=== PATIENT | female | born 1940 | race American Indian/Alaskan Native ===

== ENCOUNTER 2018-04-24 13:03 | Inpatient (IN) | payer MEDICARE ==
[2018-04-24] MEDS ORDERED: NACL 0.9% 1000 ML 1,000 ML IV ONE (13:42)
--- NOTE | 2018-04-24 13:47 | Emergency Department Report ---
ED Syncope HPI - General Chief Complaint: Syncope Stated Complaint: LOW HEART RATE Time Seen by Provider: 04/24/18 13:15 - History of Present Illness Initial Comments: 77-year-old female, history of dementia, presents to the ED from personal residential following syncopal episode while having bowel movement. Patient was initially unresponsive her caregiver. Upon EMS arrival patient was awake and alert, found to be bradycardic and hypotensive, with systolic BP in the 70s. Patient was just discharged from this hospital 3 days ago, following admission for syncope. Patient was worked up for CVA, however this workup was negative. Discharge summary shows that the patient's syncopal episode at that time was thought to be due to symptomatic bradycardia from her metoprolol. Upon discharge, metoprolol was decreased from 25 mg to 12.5 mg. - Related Data Allergies/Adverse Reactions: Allergies valsartan Allergy (Verified 04/19/18 14:23) Angioedema Home Medications: Ambulatory Orders Bisacodyl [Dulcolax tab] 10 mg PO DAILY 04/19/18 Citalopram [Celexa] 20 mg PO QDAY 04/19/18 Donepezil HCl 23 mg PO DAILY 04/19/18 Furosemide [Lasix TAB] 20 mg PO PRN 04/19/18 Levothyroxine [Synthroid] 88 mcg PO QAM 04/19/18 QUEtiapine [SEROquel] 25 mg PO BID 04/19/18 hydrALAZINE [Apresoline TAB] 25 mg PO BID 04/19/18 Aspirin [Aspirin TAB] 325 mg PO QDAY #30 tablet 04/21/18 Metoprolol Xl [Metoprolol SUCCINATE ER TAB] 12.5 mg PO QDAY #30 tablet 04/21/18 ED Review of Systems ROS: Stated complaint: LOW HEART RATE Other details as noted in HPI ED Past Medical Hx - Past Medical History Previous Medical History?: Yes Hx Hypertension: Yes Hx Congestive Heart Failure: No Hx Diabetes: No Hx Arthritis: Yes Hx Psychiatric Treatment: Yes (anxiety) Hx Asthma: No Hx COPD: No Hx Dementia: Yes Additional medical history: Hypothyroid - Surgical History Past Surgical History?: Yes Hx Cholecystectomy: Yes Additional Surgical History: back and hysterectomy - Social History Smoking Status: Never Smoker Substance Use Type: None - Medications Home Medications: Home Medications Medication Instructions Recorded Confirmed Last Taken Type Bisacodyl [Dulcolax tab] 10 mg PO DAILY 04/19/18 04/24/18 Unknown History Citalopram [Celexa] 20 mg PO QDAY 04/19/18 04/24/18 Unknown History Donepezil HCl 23 mg PO DAILY 04/19/18 04/24/18 Unknown History Furosemide [Lasix TAB] 20 mg PO PRN 04/19/18 04/24/18 Unknown History Levothyroxine [Synthroid] 88 mcg PO QAM 04/19/18 04/24/18 Unknown History QUEtiapine [SEROquel] 25 mg PO BID 04/19/18 04/24/18 Unknown History hydrALAZINE [Apresoline TAB] 25 mg PO BID 04/19/18 04/24/18 Unknown History Aspirin [Aspirin TAB] 325 mg PO QDAY #30 tablet 04/21/18 04/24/18 Unknown Rx Metoprolol Xl [Metoprolol 12.5 mg PO QDAY #30 tablet 04/21/18 04/24/18 Unknown Rx SUCCINATE ER TAB] ED Physical Exam - General Limitations: Altered Mental Status ED Course Vital Signs 04/24/18 04/24/18 04/24/18 13:05 13:57 14:10 Temperature 97.4 F L Pulse Rate 39 L 45 L Respiratory 10 L 16 Rate Blood Pressure 115/74 Blood Pressure 154/64 [Right] O2 Sat by Pulse 95 98 Oximetry - Consultations Consultation #1: 04/24/18 14:[address] Denise. Recommends taking pt off all beta blockers. Also state will get an EP evaluation. ED Medical Decision Making - Lab Data Result diagrams: 04/24/18 13:45 04/24/18 13:45 - EKG Data -: EKG Interpreted by Al EKG shows normal: sinus rhythm, axis, intervals, QRS complexes, ST-T waves Rate: bradycardia - EKG Data When compared to previous EKG there are: changes noted (now more bradycardic) - Radiology Data Radiology results: report reviewed, image reviewed - Medical Decision Making 77-year-old female with bradycardia status post syncopal episode. Labs normal, EKG shows heart rate of 40 with sinus rhythm. No evidence of ischemia. Troponin normal. Since blood pressure normal decision was made to hold atropine. Patient seen and evaluated by operating room aide, Dr. Denise. Patient to be taken off of her beta blockers and will obtain EP consult. Spoke to Dr Floyd spoke to hospitalist Dr. Floyd regarding patient. Agrees to admit patient, hospitalist. Will admit pt. - Differential Diagnosis medication effect, ACS, sick sinus Critical care attestation.: If time is entered above; I have spent that time in minutes in the direct care of this critically ill patient, excluding procedure time. ED Disposition Clinical Impression: Symptomatic bradycardia Syncope Qualifiers: Encounter type: initial encounter Disposition: OP ADMIT IP TO THIS HOSP Is pt being admited?: Yes Condition: Stable Time of Disposition: 14:41
[2018-04-24 13:53] LABS: Basophils # (Auto) 0.1 K/mm3 (0.0-0.1); Basophils % (Auto) 1.3 % (0.0-1.8); Eosinophils # (Auto) 0.2 K/mm3 (0.0-0.4); Eosinophils % (Auto) 3.2 % (0.0-4.3); Hematocrit 34.9 % (30.3-42.9); Lymphocytes # (Auto) 1.7 K/mm3 (1.2-5.4); Lymphocytes % (Auto) 22.7 % (13.4-35.0); Mean Corpuscular HGB Conc 35 % (30-34); Mean Corpuscular Hemoglobin 35 pg (28-32); Mean Corpuscular Volume 102 fl (79-97); Monocytes # (Auto) 0.8 K/mm3 (0.0-0.8); Monocytes % (Auto) 11.3 % (0.0-7.3); Platelet Count 240 K/mm3 (140-440); Red Blood Count 3.44 M/mm3 (3.65-5.03); Red Cell Distribution Width 13.4 % (13.2-15.2)
[2018-04-24 14:17] LABS: BUN/Creatinine Ratio 14; Blood Urea Nitrogen 15 mg/dL (7-17); Calcium 9.1 mg/dL (8.4-10.2); Hemolysis Index 16
--- NOTE | 2018-04-24 14:39 | History and Physical Report ---
History of Present Illness Chief complaint: keeps passing out History of present illness: 77 YO Female Personal [facility] Resident with HTN, Dementia, Hypothyroidism, Encephalopathy, Anxiety presents to ED for evaluation. Pt is confused and unable to provide history. Pt history taken from her caregiver. As per caregiver , the patient was in the restroom and having a bowel movement whe she suddenly lost consciousness, and fell onto the floor. Pt was found to be unresponsive. EMS was notified, and upon arrival the patient was found to be hypotensive and bradycardic. The patient was transported to [facility] for further care and evaluation. Pt seen and evaluated in ED and found to have symptomatic bradycardia, as well as Encephalopathy. Pt admitted to telemetry. Cardiology consulted in ED. Past History Past Medical History: arthritis, hypertension, hypothyroidism, other (Dementia, Anxiety) Past Surgical History: cholecystectomy, hysterectomy, Other (back surgery) Social history: single. denies: smoking, alcohol abuse, prescription drug abuse Family history: hypertension Medications and Allergies Allergies Allergy/AdvReac Type Severity Reaction Status Date / Time valsartan Allergy Angioedema Verified 04/19/18 14:23 Home Medications Medication Instructions Recorded Confirmed Last Taken Type Bisacodyl [Dulcolax tab] 10 mg PO DAILY 04/19/18 04/24/18 Unknown History Citalopram [Celexa] 20 mg PO QDAY 04/19/18 04/24/18 Unknown History Donepezil HCl 23 mg PO DAILY 04/19/18 04/24/18 Unknown History Furosemide [Lasix TAB] 20 mg PO PRN 04/19/18 04/24/18 Unknown History Levothyroxine [Synthroid] 88 mcg PO QAM 04/19/18 04/24/18 Unknown History QUEtiapine [SEROquel] 25 mg PO BID 04/19/18 04/24/18 Unknown History hydrALAZINE [Apresoline TAB] 25 mg PO BID 04/19/18 04/24/18 Unknown History Aspirin [Aspirin TAB] 325 mg PO QDAY #30 tablet 04/21/18 04/24/18 Unknown Rx Metoprolol Xl [Metoprolol 12.5 mg PO QDAY #30 tablet 04/21/18 04/24/18 Unknown Rx SUCCINATE ER TAB] Active Meds: Active Medications Sodium Chloride (Nacl 0.9% 1000 Ml) 1,000 mls @ 999 mls/hr IV BOLUS ONE Stop: 04/24/18 14:42 Last Admin: 04/24/18 13:57 Dose: 999 mls/hr Review of Systems ROS unobtainable: due to mental status Exam - Constitutional Vitals: Temp Pulse Resp BP Pulse Ox 97.4 F L 39 L 10 L 115/74 95 04/24/18 13:57 04/24/18 13:05 04/24/18 13:05 04/24/18 13:05 04/24/18 13:05 General appearance: Present: mild distress - EENT Eyes: Present: PERRL ENT: hearing intact, clear oral mucosa - Neck Neck: Present: supple, normal ROM - Respiratory Respiratory effort: normal Respiratory: bilateral: CTA - Cardiovascular Rhythm: other (bradycardic) Heart Sounds: Present: S1 & S2. Absent: rub, click - Extremities Extremities: pulses symmetrical, No edema Peripheral Pulses: abnormal (1+.= bilaterally) - Abdominal General gastrointestinal: Present: soft, non-tender, non-distended, normal bowel sounds Female genitourinary: Present: normal - Integumentary Integumentary: Present: clear, warm, dry - Musculoskeletal Musculoskeletal: generalized weakness - Psychiatric Psychiatric: no appropriate mood/affect, no intact judgment & insight, no memory intact - Neurologic Neurologic: CNII-XII intact, moves all extremities, no gait normal Results - Labs CBC & Chem 7: 04/24/18 13:45 04/24/18 13:45 Labs: Abnormal lab results 04/24/18 Range/Units 13:45 RBC 3.44 L (3.65-5.03) M/mm3 MCV 102 H (79-97) fl MCH 35 H (28-32) pg MCHC 35 H (30-34) % [place] % (Auto) 11.3 H (0.0-7.3) % Assessment and Plan - Patient Problems (1) Diastolic CHF Current Visit: Yes Status: Acute Qualifiers: Heart failure chronicity: acute on chronic Qualified Code(s): I50.33 - Acute on chronic diastolic (congestive) heart failure Plan to address problem: Admit to telemetry, Strict I/O, monitor uop q shift,daily weight, cardiology consulted in ED. (2) Symptomatic bradycardia Current Visit: Yes Status: Acute Plan to address problem: neuro checks, admit to telemetry, cardiology consulted in ED, hold b lucía therapy. (3) Syncope Current Visit: Yes Status: Acute Qualifiers: Encounter type: initial encounter Plan to address problem: secondary to bradycardia, hold B lucía therapy, (4) Encephalopathy Current Visit: No Status: Acute Plan to address problem: Neuro checks, seizure precautions, supportive care. (5) DVT prophylaxis Current Visit: No Status: Acute Plan to address problem: SCD to BLE while in bed.
[2018-04-24] MEDS ORDERED: PROVENTIL IH PRN (14:41)
[2018-04-24] MEDS ORDERED: ZOFRAN IV PRN (14:41)
[2018-04-24] MEDS ORDERED: TYLENOL PO PRN (14:41)
[2018-04-24] MEDS ORDERED: SODIUM CHLORIDE FLUSH SYRINGE 10 ML IV PRN (14:41)
--- NOTE | 2018-04-24 14:53 | XRay Report ---
AP CHEST: HISTORY: Syncope Borderline heart size and small left pleural effusion are suspected. The lungs are generally clear otherwise. No evidence for pneumonia or large mass. The bony structures are intact. IMPRESSION: Borderline heart size. Small left pleural effusion.
[2018-04-24] MEDS ORDERED: APRESOLINE IV PRN (17:40)
--- NOTE | 2018-04-24 17:47 | Consultation ---
History of Present Illness Consult date: 04/24/18 Consult reason: syncope History of present illness: 77y F with advanced dementia, admitted following a syncope. She lives in a personal assisted. This is a second admission for syncope, was at this hospital just last week, . At that time she had extensive neuro workup with Brain MRI and neurology consultation. Cardiology was not involved in her care during that admission, but an Echo ordered by the medical service reported normal EF 60-65%, no cardioembolic source. On this presentation, she was reported to have syncope while on the commode. Patient unable to give a history due to her dementia. Most notably, her current syncope is associated with a persistent sinus bradycardia, HR was 39 on ER arrival. I reviewed her records from last week. HR was 50s-60s on presentation, but dipped down to the high 40s and low 50s, which led to recommendation for halving her metoprolol XL to 25mg half tablet daily on discharge. Currently she is awake, alert, no acute distress, remains with marked bradycardia on telemonitor. BP is elevated 160 systolic. ECG is marked sinus bradycardia at 40, otherwise normal. TSH measurements last week and again today are both normal. Past History Past Medical History: hypertension, hypothyroidism, other (dementia, syncope) Medications and Allergies Allergies Allergy/AdvReac Type Severity Reaction Status Date / Time valsartan Allergy Angioedema Verified 04/19/18 14:23 Home Medications Medication Instructions Recorded Confirmed Last Taken Type Bisacodyl [Dulcolax tab] 10 mg PO DAILY 04/19/18 04/24/18 Unknown History Citalopram [Celexa] 20 mg PO QDAY 04/19/18 04/24/18 Unknown History Donepezil HCl 23 mg PO DAILY 04/19/18 04/24/18 Unknown History Furosemide [Lasix TAB] 20 mg PO PRN 04/19/18 04/24/18 Unknown History Levothyroxine [Synthroid] 88 mcg PO QAM 04/19/18 04/24/18 Unknown History QUEtiapine [SEROquel] 25 mg PO BID 04/19/18 04/24/18 Unknown History hydrALAZINE [Apresoline TAB] 25 mg PO BID 04/19/18 04/24/18 Unknown History Aspirin [Aspirin TAB] 325 mg PO QDAY #30 tablet 04/21/18 04/24/18 Unknown Rx Metoprolol Xl [Metoprolol 12.5 mg PO QDAY #30 tablet 04/21/18 04/24/18 Unknown Rx SUCCINATE ER TAB] Active Meds: Active Medications Acetaminophen (Tylenol) 650 mg PO Q4H PRN PRN Reason: Pain MILD(1-3)/Fever >100.5/JO Albuterol (Proventil) 2.5 mg IH Q4HRT PRN PRN Reason: Shortness Of Breath Aspirin (Aspirin) 325 mg PO QDAY [facility]ITA Bisacodyl (Dulcolax) 10 mg PO DAILY PITA Citalopram Hydrobromide (Celexa) 20 mg PO QDAY PITA Levothyroxine Sodium (Synthroid) 88 mcg PO QAM PITA Miscellaneous Medication (Donepezil Hcl [Donepezil Hcl]) 23 mg PO DAILY PITA Ondansetron HCl (Zofran) 4 mg IV Q8H PRN PRN Reason: Nausea And Vomiting Quetiapine Fumarate (Seroquel) 25 mg PO BID PITA Sodium Chloride (Sodium Chloride Flush Syringe 10 Ml) 10 ml IV BID PITA Sodium Chloride (Sodium Chloride Flush Syringe 10 Ml) 10 ml IV PRN PRN PRN Reason: LINE FLUSH Review of Systems ROS unobtainable: due to mental status Physical Examination Vital Signs Pulse Resp BP Pulse Ox 39 L 10 L 115/74 95 04/24/18 13:05 04/24/18 13:05 04/24/18 13:05 04/24/18 13:05 General appearance: no acute distress HEENT: Positive: PERRL Neck: Positive: neck supple Cardiac: Positive: Regular Rhythm Lungs: Positive: clear to auscultation Neuro: Positive: Grossly Intact Abdomen: Positive: Soft Female genitourinary: deferred Skin: Positive: Clear Extremities: Absent: edema Results 04/24/18 13:45 04/24/18 13:45 CBC 04/24/18 Range/Units 13:45 WBC 7.3 (4.5-11.0) K/mm3 RBC 3.44 L (3.65-5.03) M/mm3 Hgb 12.0 (10.1-14.3) gm/dl Hct 34.9 (30.3-42.9) % Plt Count 240 (140-440) K/mm3 Lymph # 1.7 (1.2-5.4) K/mm3 [place] # 0.8 (0.0-0.8) K/mm3 Eos # 0.2 (0.0-0.4) K/mm3 Baso # 0.1 (0.0-0.1) K/mm3 Comprehensive Metabolic Panel 04/24/18 Range/Units 13:45 Sodium 137 (137-145) mmol/L Potassium 3.9 (3.6-5.0) mmol/L Chloride 101.2 (98-107) mmol/L Carbon Dioxide 24 (22-30) mmol/L BUN 15 (7-17) mg/dL Creatinine 1.1 (0.7-1.2) mg/dL Glucose 87 (65-100) mg/dL Calcium 9.1 (8.4-10.2) mg/dL EKG interpretations - Telemetry EKG Rhythm: Sinus Bradycardia Assessment and Plan Syncope (recurrent) and marked sinus bradycardia. TSH is normal, ECG no ischemic changes. Echocardiogram EF normal 60%. Patient needs evaluation for PM implant.
[2018-04-24] MEDS: PROCARDIA XL PO SCH (18:50)
[2018-04-25] MEDS: SODIUM CHLORIDE FLUSH SYRINGE 10 ML IV SCH ×3 (00:18→21:41)
[2018-04-25] MEDS: ASPIRIN PO SCH (09:47)
[2018-04-25] MEDS: celeXA PO SCH (09:47)
[2018-04-25] MEDS: PROCARDIA XL PO SCH (09:47)
[2018-04-25] MEDS: SYNTHROID PO SCH (09:47)
[2018-04-25] MEDS: DULCOLAX PO SCH (09:48)
[2018-04-25] MEDS ORDERED: DONEPEZIL HCL 23 MG PO SCH (10:00)
[2018-04-25] MEDS ORDERED: AFLURIA QUAD 2018-2019 SYRINGE IM ONE (12:00)
--- NOTE | 2018-04-25 13:05 | Consultation ---
History of Present Illness Consult date: 04/25/18 Consult reason: syncope History of present illness: Patient has advanced dementia and not able to provide any meaningful history. History was obtained from medical records. She is a [facility] resident and apparently had an episode of syncope while attempting to move her bowels. She was subsequently noted to have significant sinus bradycardia. She has been chronically treated with beta lucía due to h/o htn and dose was recently decreased after similar episode of syncope and bradycardia. Beta lucía has now been held since admission. She has h/o hypothyroidism but is currently euthyroid on medical therapy. Recent echocardiogram revealed normal LV systolic function and no significant valvular lesions. ECG on presentation revealed sinus bradycardia at 40 bpm and was otherwise unremarkable. Telemetry monitoring today reveals improved bradycardia with heart rates ranging from the mid 40s to mid 50s. Past History Past Medical History: hypertension, hypothyroidism, other (dementia, syncope) Past Surgical History: cholecystectomy, hysterectomy, Other (back surgery) Social history: single. denies: smoking, alcohol abuse, prescription drug abuse Family history: hypertension Medications and Allergies Allergies Allergy/AdvReac Type Severity Reaction Status Date / Time valsartan Allergy Angioedema Verified 04/19/18 14:23 Home Medications Medication Instructions Recorded Confirmed Last Taken Type Bisacodyl [Dulcolax tab] 10 mg PO DAILY 04/19/18 04/24/18 Unknown History Citalopram [Celexa] 20 mg PO QDAY 04/19/18 04/24/18 Unknown History Donepezil HCl 23 mg PO DAILY 04/19/18 04/24/18 Unknown History Furosemide [Lasix TAB] 20 mg PO PRN 04/19/18 04/24/18 Unknown History Levothyroxine [Synthroid] 88 mcg PO QAM 04/19/18 04/24/18 Unknown History QUEtiapine [SEROquel] 25 mg PO BID 04/19/18 04/24/18 Unknown History hydrALAZINE [Apresoline TAB] 25 mg PO BID 04/19/18 04/24/18 Unknown History Aspirin [Aspirin TAB] 325 mg PO QDAY #30 tablet 04/21/18 04/24/18 Unknown Rx Metoprolol Xl [Metoprolol 12.5 mg PO QDAY #30 tablet 04/21/18 04/24/18 Unknown Rx SUCCINATE ER TAB] Active Meds: Active Medications Acetaminophen (Tylenol) 650 mg PO Q4H PRN PRN Reason: Pain MILD(1-3)/Fever >100.5/JO Albuterol (Proventil) 2.5 mg IH Q4HRT PRN PRN Reason: Shortness Of Breath Aspirin (Aspirin) 325 mg PO QDAY [facility] Last Admin: 04/25/18 09:47 Dose: 325 mg Bisacodyl (Dulcolax) 10 mg PO DAILY [facility] Last Admin: 04/25/18 09:48 Dose: 10 mg Citalopram Hydrobromide (Celexa) 20 mg PO QDAY [facility] Last Admin: 04/25/18 09:47 Dose: 20 mg Hydralazine HCl (Apresoline) 20 mg IV Q6HR PRN PRN Reason: HTN SYS>145 Levothyroxine Sodium (Synthroid) 88 mcg PO QAM [facility] Last Admin: 04/25/18 09:47 Dose: 88 mcg Miscellaneous Medication (Donepezil Hcl [Donepezil Hcl]) 23 mg PO DAILY [facility] Nifedipine (Procardia Xl) 60 mg PO QDAY [facility] Last Admin: 04/25/18 09:47 Dose: 60 mg Ondansetron HCl (Zofran) 4 mg IV Q8H PRN PRN Reason: Nausea And Vomiting Quetiapine Fumarate (Seroquel) 25 mg PO BID [facility] Last Admin: 04/25/18 09:47 Dose: 25 mg Sodium Chloride (Sodium Chloride Flush Syringe 10 Ml) 10 ml IV BID [facility] Last Admin: 04/25/18 10:00 Dose: 10 ml Sodium Chloride (Sodium Chloride Flush Syringe 10 Ml) 10 ml IV PRN PRN PRN Reason: LINE FLUSH Review of Systems ROS unobtainable: due to mental status Physical Examination Vital Signs Pulse Resp BP Pulse Ox 39 L 10 L 115/74 95 04/24/18 13:05 04/24/18 13:05 04/24/18 13:05 04/24/18 13:05 General appearance: no acute distress HEENT: Positive: EOMI Neck: Positive: trachea midline Cardiac: Positive: Reg Rate and Rhythm. Negative: Audible Murmur Lungs: Positive: clear to auscultation Neuro: Positive: Other (Not oriented to place, person, or time) Abdomen: Positive: Soft, Active Bowel Sounds Extremities: Absent: edema Results 04/24/18 13:45 10/22/18 13:45 CBC 04/24/18 Range/Units 13:45 WBC 7.3 (4.5-11.0) K/mm3 RBC 3.44 L (3.65-5.03) M/mm3 Hgb 12.0 (10.1-14.3) gm/dl Hct 34.9 (30.3-42.9) % Plt Count 240 (140-440) K/mm3 Lymph # 1.7 (1.2-5.4) K/mm3 [place] # 0.8 (0.0-0.8) K/mm3 Eos # 0.2 (0.0-0.4) K/mm3 Baso # 0.1 (0.0-0.1) K/mm3 Comprehensive Metabolic Panel 04/24/18 Range/Units 13:45 Sodium 137 (137-145) mmol/L Potassium 3.9 (3.6-5.0) mmol/L Chloride 101.2 (98-107) mmol/L Carbon Dioxide 24 (22-30) mmol/L BUN 15 (7-17) mg/dL Creatinine 1.1 (0.7-1.2) mg/dL Glucose 87 (65-100) mg/dL Calcium 9.1 (8.4-10.2) mg/dL Assessment and Plan Syncope per medical records Advanced dementia: Patient not able to provide history. Sinus bradycardia on beta lucía Htn Hypothyroidism: Currently euthyroid on medical treatment. Recommend: Continue to hold beta lucía and do not start any other negative chronotropic drugs. Continue to monitor - no indication for PPM unless she has obvious symptoms related to bradycardia, severe bradycardia (HR below 40 while awake) or significant sinus pauses.
--- NOTE | 2018-04-25 15:24 | Progress Note ---
Assessment and Plan Assessment and plan: 77 YO Female Personal [facility] Resident with HTN, Dementia, Hypothyroidism, Encephalopathy, Anxiety presents to ED for evaluation. Pt is confused and unable to provide history. Pt history taken from her caregiver. As per caregiver , the patient was in the restroom and having a bowel movement when she suddenly lost consciousness, and fell onto the floor. Pt was found to be unresponsive. EMS was notified, and upon arrival the patient was found to be hypotensive and bradycardic. The patient was transported to [facility] for further care and evaluation. Pt seen and evaluated in ED and found to have symptomatic bradycardia, as well as Encephalopathy. Symptomatic bradycardia - Patient was on Toprol and currently discontinued - Didn't have any symptoms after admission - Cardiology is following - On telemetry monitoring, her heart rate was in the 50's Hypertension - Started on Procardia Dementia -Supportive care DVT prophylaxis - On lovenox Disposition - We will be discharged back to SNF once cardiology cleared for discharge. History Interval history: Patient was seen and evaluated this morning, patient is demented and not able to communicate. Hospitalist Physical - Physical exam Narrative exam: Not in cardiopulmonary distress. The patient appeared well nourished and normally developed. Vital signs as documented. Head exam is unremarkable. No scleral icterus . Neck is without jugular venous distension, thyromegaly, or carotid bruits. Lungs are clear to auscultation. Cardiac exam reveals regular rate and Rhythm. Abdominal exam reveals normal bowel sounds. Extremities are nonedematous. 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 - Constitutional Vitals: Temp Pulse Resp BP Pulse Ox 98.6 F 51 L 20 148/64 99 04/25/18 08:02 04/25/18 08:02 04/25/18 08:02 04/25/18 08:02 04/25/18 08:39 General appearance: Present: no acute distress Results - Labs CBC & Chem 7: 04/24/18 13:45 04/24/18 13:45 Labs: Laboratory Last Values WBC 7.3 K/mm3 (4.5-11.0) 04/24/18 13:45 RBC 3.44 M/mm3 (3.65-5.03) L 04/24/18 13:45 Hgb 12.0 gm/dl (10.1-14.3) 04/24/18 13:45 Hct 34.9 % (30.3-42.9) 04/24/18 13:45 MCV 102 fl (79-97) H 04/24/18 13:45 MCH 35 pg (28-32) H 04/24/18 13:45 MCHC 35 % (30-34) H 04/24/18 13:45 RDW 13.4 % (13.2-15.2) 04/24/18 13:45 Plt Count 240 K/mm3 (140-440) 04/24/18 13:45 Lymph % (Auto) 22.7 % (13.4-35.0) 04/24/18 13:45 [place] % (Auto) 11.3 % (0.0-7.3) H 04/24/18 13:45 Eos % (Auto) 3.2 % (0.0-4.3) 04/24/18 13:45 Baso % (Auto) 1.3 % (0.0-1.8) 04/24/18 13:45 Lymph # 1.7 K/mm3 (1.2-5.4) 04/24/18 13:45 [place] # 0.8 K/mm3 (0.0-0.8) 04/24/18 13:45 Eos # 0.2 K/mm3 (0.0-0.4) 04/24/18 13:45 Baso # 0.1 K/mm3 (0.0-0.1) 04/24/18 13:45 Seg Neutrophils % 61.5 % (40.0-70.0) 04/24/18 13:45 Seg Neutrophils # 4.5 K/mm3 (1.8-7.7) 04/24/18 13:45 Sodium 137 mmol/L (137-145) 04/24/18 13:45 Potassium 3.9 mmol/L (3.6-5.0) 04/24/18 13:45 Chloride 101.2 mmol/L (98-107) 04/24/18 13:45 Carbon Dioxide 24 mmol/L (22-30) 04/24/18 13:45 Anion Gap 16 mmol/L 04/24/18 13:45 BUN 15 mg/dL (7-17) 04/24/18 13:45 Creatinine 1.1 mg/dL (0.7-1.2) 04/24/18 13:45 Estimated GFR 59 ml/min 04/24/18 13:45 BUN/Creatinine Ratio 14 % 04/24/18 13:45 Glucose 87 mg/dL (65-100) 04/24/18 13:45 POC Glucose 124 (70-105) H 04/24/18 21:31 Calcium 9.1 mg/dL (8.4-10.2) 04/24/18 13:45 Magnesium 1.90 mg/dL (1.7-2.3) 04/24/18 16:03 Troponin T < 0.010 ng/mL (0.00-0.029) 04/24/18 13:45 TSH 1.760 mlU/mL (0.270-4.200) 04/24/18 16:03
[2018-04-25] MEDS ORDERED: LOVENOX SUB-Q SCH (22:00)
[2018-04-26] MEDS: ASPIRIN PO SCH (10:56)
[2018-04-26] MEDS: DULCOLAX PO SCH (10:56)
[2018-04-26] MEDS: PROCARDIA XL PO SCH (10:57)
[2018-04-26] MEDS: celeXA PO SCH (10:57)
[2018-04-26] MEDS: SYNTHROID PO SCH (10:57)
[2018-04-26] MEDS: SODIUM CHLORIDE FLUSH SYRINGE 10 ML IV SCH (10:58)
--- NOTE | 2018-04-26 11:48 | Progress Note ---
Assessment and Plan Syncope normal EF 60-65%, no cardioembolic source by recent echocardiogram Advanced dementia Sinus bradycardia beta lucía discontinued. no indication for PPM Htn Hypothyroidism: Currently euthyroid on medical treatment. Recommend: Avoid negative chronotropic drugs. Otherwise, conservative cardiac management. Subjective Date of service: 04/26/18 Interval history: Patient is alert with confusion. No distress noted. Sinus rhythm, rate 61 on telemetry. Objective Vital Signs Temp Pulse Resp BP BP Pulse Ox 04/26/18 09:09 100 04/26/18 08:21 98.4 F 62 20 120/60 98 04/26/18 04:34 98.1 F 18 128/61 04/25/18 23:48 97.8 F 61 18 107/46 98 04/25/18 20:22 59 L 04/25/18 20:08 20 04/25/18 19:22 98.2 F 18 122/55 04/25/18 16:13 97.9 F 59 L 20 132/51 99 04/25/18 11:56 97.9 F 20 135/70 - Physical Examination General: No Apparent Distress Neck: Positive: trachea midline Cardiac: Positive: Reg Rate and Rhythm Lungs: Positive: Decreased Breath Sounds Neuro: Positive: Weakness Extremities: Absent: edema
[2018-04-26 12:32] VITALS: BP 131/67
--- NOTE | 2018-04-26 14:50 | Discharge Summary ---
Providers - Providers Date of Admission: 04/24/18 14:41 Attending physician: PERCY LAYTON MD 04/24/18 13:51 Consult to Physician [CONS] Stat Comment: Consulting Provider: DOMI GUTIERREZ Physician Instructions: Reason For Exam: bradycardia Primary care physician: [employer]ICER Hospitalization Reason for admission: syncope, bradycardia, dementia Condition: Stable Hospital course: Admission H/P 77 YO Female Personal Fdc Resident with HTN, Dementia, Hypothyroidism, Encephalopathy, Anxiety presents to ED for evaluation. Pt is confused and unable to provide history. Pt history taken from her caregiver. As per caregiver , the patient was in the restroom and having a bowel movement whe she suddenly lost consciousness, and fell onto the floor. Pt was found to be unresponsive. EMS was notified, and upon arrival the patient was found to be hypotensive and bradycardic. The patient was transported to [facility] for further care and evaluation. Pt seen and evaluated in ED and found to have symptomatic bradycardia, as well as Encephalopathy. Pt admitted to telemetry. Cardiology consulted in ED. Patient was admitted to the floor for symptomatic bradycardia with syncope and cardiology evaluated her D/C her metoprolol followed and her HR was in the mid 50's no symptoms and discharged back to SNF. patient was given procardia for HTN and discontinued Toprol. patient was hemodynamically stable at the time of discharge. Appropriate medication scripts were given. Disposition: DC/TX-03 SNF [facility] Time spent for discharge: 35 minutes - Discharge Diagnoses (1) Symptomatic bradycardia Status: Acute (2) Syncope Status: Acute Qualifiers: Encounter type: initial encounter (3) Dementia Status: Acute Qualifiers: Alzheimer's disease onset: other onset Dementia behavioral disturbance: with behavioral disturbance (4) HTN (hypertension) Status: Acute Qualifiers: Hypertension type: essential hypertension Qualified Code(s): I10 - Essential (primary) hypertension (5) Hypothyroid Status: Acute Qualifiers: Hypothyroidism type: unspecified Qualified Code(s): E03.9 - Hypothyroidism , unspecified Core Measure Documentation - Palliative Care Palliative Care/ Comfort Measures: Not Applicable - Core Measures Any of the following diagnoses?: none Exam - Physical Exam Narrative exam: Not in cardiopulmonary distress. The patient appeared well nourished and normally developed. Vital signs as documented. Head exam is unremarkable. No scleral icterus . Neck is without jugular venous distension, thyromegaly, or carotid bruits. Lungs are clear to auscultation. Cardiac exam reveals regular rate and Rhythm. Abdominal exam reveals normal bowel sounds. Extremities are nonedematous. COMMUNITY ASSISTANT: Demented. - Constitutional Vitals: Temp Pulse Resp BP Pulse Ox 98.0 F 56 L 18 131/67 99 04/26/18 12:31 04/26/18 12:31 04/26/18 12:31 04/26/18 12:31 04/26/18 12:31 Plan Activity: advance as tolerated Weight Bearing Status: Weight Bear as Tolerated Diet: low salt Additional Instructions: Follow up at [facility] if no estbliahed PCP. Follow up with: PRIMARY CARE, [Primary Care Provider] - 3-5 Days Forms: Accompanied Note Prescriptions: NIFEdipine XL [Procardia Xl] 60 mg PO QDAY #30 tablet
== END 2018-04-26 18:05 | DRG 308 ==
LOC: ED 13:03 → 4A 14:41
PROVIDERS: ADMIT Internal Medicine; ATTEND Internal Medicine
DX: R00.1 Bradycardia, unspecified (principal); I50.33 Acute on chronic diastolic (congestive) heart failure; G93.40 Encephalopathy, unspecified; I11.0 Hypertensive heart disease with heart failure; R55 Syncope and collapse; F03.90 Unspecified dementia, unspecified severity, without behavioral disturbance, psychotic disturbance, mood disturbance, and anxiety; E03.9 Hypothyroidism, unspecified; F41.9 Anxiety disorder, unspecified; M19.90 Unspecified osteoarthritis, unspecified site; Z90.49 Acquired absence of other specified parts of digestive tract; Z90.710 Acquired absence of both cervix and uterus; Z82.49 Family history of ischemic heart disease and other diseases of the circulatory system; Z79.899 Other long term (current) drug therapy; Z79.82 Long term (current) use of aspirin
CPT/HCPCS: 36415; 71045; 80048; 82962; 83735; 84443; 84484; 85025; 90686; 93005; 93010; 96360; J0360; J1650; J7030

== ENCOUNTER 2020-05-02 14:48 | Inpatient (IN) | payer MEDICARE ==
--- NOTE | 2020-05-02 15:07 | Consultation ---
History of Present Illness - Reason for Consult Consult date: 05/02/20 - History of Present Illness [facility] Date of Service: 05/02/2020 14:42:28 Impression: Rule Out Acute Ischemic Stroke ams Comments/Sign-Out: She may have stat CT angiogram of the head and neck and CT perfusion studies to rule out a large vessel occlusion. If these tests are negative then,The patient needs to be admitted for further testing with brain MRI, carotids and echocardiogram. Mechanism of Stroke: Not Clear Metrics: Last Known Well: 05/02/2020 13:50:00 [employer] Notification Time: 05/02/2020 14:41:05 Arrival Time: 05/02/2020 14:47:56 Stamp Time: 05/02/2020 14:42:28 Time First Login Attempt: 05/02/2020 14:46:27 Video Start Time: 05/02/2020 14:46:27 Symptoms: ams NIHSS Start Assessment Time: 05/02/2020 14:49:00 Patient is not a candidate for Alteplase/Activase. Patient was not deemed candidate for Alteplase/Activase thrombolytics because of Patient is obtunded, cannot find focal deficits. Video End Time: 05/02/2020 15:05:20 CT head showed no acute hemorrhage or acute core infarct. Lower Likelihood of Large Vessel Occlusion but Following Stat Studies are Recommended CTA Head and Neck. ED Physician notified of diagnostic impression and management plan on 05/02/2020 15:05:22 Our recommendations are outlined below. Recommendations: Activate Stroke Protocol Admission/Order Set Stroke/Telemetry Floor Neuro Checks Bedside Swallow Eval DVT Prophylaxis IV Fluids, Normal Saline Head of Bed 30 Degrees Euglycemia and Avoid Hyperthermia (PRN Acetaminophen) Antiplatelet Therapy Recommended Routine Consultation with Inhouse Neurology for Follow up Care Sign Out: Discussed with Emergency Department Provider History of Present Illness: Patient is a 79 year old Female. Patient was brought by EMS for symptoms of ams 79-year-old female with past medical history significant for TIA, hypothyroidism and dementia not on any antiplatelets or anticoagulants. She was last known normal about an hour prior representation when she became unresponsive. She usually becomes unresponsive when she has a TIA but recovers within a few minutes. This time she did not recover due to which the rescue squad was called and she was transferred to the emergency room. She remains obtunded, no facial asymmetry or gaze deviation is noted. She has flaccidity in all four extremities. No significant response noted to deep sternal rub. CAT scan of the head is negative. We will proceed with stat CT angiogram of the head and neck to rule out a large vessel occlusion. Last seen normal was within 4.5 hours. There is no history of hemorrhagic complications or intracranial hemorrhage. There is no history of Recent Anticoagulants. There is no history of recent major surgery. There is no history of recent stroke. Past Medical History: Hypertension There is NO history of Diabetes Mellitus There is NO history of Hyperlipidemia There is NO history of Atrial Fibrillation There is NO history of Coronary Artery Disease There is NO history of Stroke Anticoagulant use: No Antiplatelet use: No Examination: BP(122/96), Pulse(47), Blood Glucose(192) 1A: Level of Consciousness - Postures or Unresponsive + 3 1B: Ask Month and Age - Could Not Answer Either Question Correctly + 2 1C: Blink Eyes & Squeeze Hands - Performs 0 Tasks + 2 2: Test Horizontal Extraocular Movements - Normal + 0 3: Test Visual [place] - No Visual Loss + 0 4: Test Facial Palsy (Use Grimace if Obtunded) - Normal symmetry + 0 5A: Test Left Arm Motor Drift - No Effort Against [place] + 3 5B: Test Right Arm Motor Drift - No Movement + 4 6A: Test Left Leg Motor Drift - No Movement + 4 6B: Test Right Leg Motor Drift - No Movement + 4 7: Test Limb Ataxia (FNF/Heel-Tompkins) - Does Not Understand + 0 8: Test Sensation - Normal; No sensory loss + 0 9: Test Language/Aphasia - Coma/Unresponsive + 3 10: Test Dysarthria - Normal + 0 11: Test Extinction/Inattention - No abnormality + 0 NIHSS Score: 25 Patient/Family was informed the Neurology Consult would happen via TeleHealth consult by way of interactive audio and video telecommunications and consented to receiving care in this manner. Due to the immediate potential for life-threatening deterioration due to underlying acute neurologic illness, I spent 25 minutes providing critical care. This time includes time for face to face visit via telemedicine, review of medical records, imaging studies and discussion of findings with providers, the patient and/or family. Dr Mack Hicks [employer] Case [id number] Medications and Allergies Allergies Allergy/AdvReac Type Severity Reaction Status Date / Time valsartan Allergy Angioedema Verified 04/19/18 14:23 Home Medications Medication Instructions Recorded Confirmed Last Taken Type Citalopram [Celexa] 20 mg PO QDAY 04/19/18 04/24/18 Unknown History Donepezil HCl 23 mg PO DAILY 04/19/18 04/24/18 Unknown History Furosemide [Lasix TAB] 20 mg PO PRN 04/19/18 04/24/18 Unknown History Levothyroxine [Synthroid] 88 mcg PO QAM 04/19/18 04/24/18 Unknown History QUEtiapine [SEROquel] 25 mg PO BID 04/19/18 04/24/18 Unknown History bisacodyL [Dulcolax tab] 10 mg PO DAILY 04/19/18 04/24/18 Unknown History hydrALAZINE [Apresoline TAB] 25 mg PO BID 04/19/18 04/24/18 Unknown History Aspirin 325 mg PO QDAY #30 tablet 04/21/18 04/24/18 Unknown Rx NIFEdipine XL [Procardia Xl] 60 mg PO QDAY #30 tablet 04/26/18 Unknown Rx
--- NOTE | 2020-05-02 15:34 | Cat Scan Report ---
CT head/brain wo con INDICATION / CLINICAL INFORMATION: 79 years Female; Altered Mental Status. TECHNIQUE: Routine CT head without contrast. All CT scans at this location are performed using CT dos e reduction for ALARA by means of automated exposure control. COMPARISON: MRI-04/21/2018 FINDINGS: BRAIN / INTRACRANIAL CONTENTS: There may be a small arachnoid cyst lateral to the left cerebellar hem isphere, which is of no clinical significance. Otherwise, no acute hemorrhage, mass effect, midline shift, hydrocephalus, or acute, large territori al infarct. Moderate cerebral atrophy. Moderate to marked degree of hippocampal atrophy suggested bilaterally. There are moderate to marked, somewhat confluent areas of decreased attenuation in the white matter o f the cerebral hemispheres, as well as the gangliocapsular regions. These are nonspecific findings an d may be related to microangiopathy (hypertension, diabetes, atherosclerosis), given the patient's ag e. It might be difficult to evaluate for small areas of ischemia without diffusion imaging by MRI. CRANIOCERVICAL JUNCTION: There may be significant canal narrowing at the C1-2 level, perhaps related to prior trauma. ORBITS: Lens dislocation of the left globe may be present. Please clinically correlate. SINUSES / MASTOIDS: No significant abnormality in the visualized paranasal sinuses or mastoid air lillie ls. ADDITIONAL FINDINGS: No significant atherosclerotic disease appreciated. IMPRESSION: 1. No focal mass, hemorrhage, hydrocephalus, or acute, large territorial infarct. 2. Significant canal narrowing suggested at the C1-2 level-this finding partially visualized on this exam. Follow-up with CT and/or MRI of the cervical spine, as clinically warranted. CODE STROKE: Exam Completed ([employer]/CDT): 05/02/2020 2:16 PM Exam Reviewed ([employer]/CDT): 2:20 PM Time of Communication ([employer]/CDT): 2:22 PM Licensed Practitioner Receiving Report: Dr. Lockwood's nurse Signer Name: Lee Srivastava MD, III Signed: 05/02/2020 3:29 PM Workstation Name: [id number]
[2020-05-02] MEDS ORDERED: CEFEPIME/NS 1 GM/100 ML 1 GM/100 ML BAG IV ONE (15:54)
[2020-05-02] MEDS ORDERED: SODIUM CHLORIDE 0.9% 1000 ML 1,000 ML ONE ×2 (16:06→22:50)
--- NOTE | 2020-05-02 16:08 | XRay Report ---
CHEST 1 VIEW INDICATION: Altered Mental Status. COMPARISON: 04/24/2018 FINDINGS: Support devices: None. Heart: Stable Lungs/Pleura: No acute pulmonary or pleural findings. Lucency under left hemidiaphragm is likely due to gaseous distention of the stomach or splenic flexur e. IMPRESSION: 1. No acute findings. Signer Name: Stanley Foley MD Signed: 05/02/2020 4:03 PM Workstation Name: [id number]
[2020-05-02 16:17] LABS: Amphetamine Screen,Urine Negative; Benzodiazepines Screen,Urine Negative; Cannabinoid Screen,Urine Negative; Cocaine Screen,Urine Negative; Methadone Screen,Urine Negative; Opiate Screen,Urine Negative
[2020-05-02] MEDS ORDERED: SODIUM CHLORIDE 0.9% 1000 ML 1,000 ML IV ONE (16:20)
[2020-05-02 16:23] LABS: Basophils % (Auto) 0.6 % (0.0-1.8); Eosinophils % (Auto) 0.5 % (0.0-4.3); Lymphocytes # (Auto) 1.2 K/mm3 (1.2-5.4); Lymphocytes % (Auto) 16.6 % (13.4-35.0); Mean Corpuscular HGB Conc 34 % (30-34); Mean Corpuscular Volume 100 fl (79-97); Monocytes # (Auto) 0.5 K/mm3 (0.0-0.8); Platelet Count 209 K/mm3 (140-440); Red Blood Count 3.79 M/mm3 (3.65-5.03); Red Cell Distribution Width 13.4 % (13.2-15.2)
[2020-05-02 16:32] LABS: INR 1.17 (0.87-1.13)
[2020-05-02 16:33] LABS: Bacteria,Urine 1+ /HPF (Negative); Bilirubin,Urine NEG (Negative); Blood,Urine LG (Negative); Color,Urine Red (Yellow); Hyaline Casts,Urine 27 /LPF; Mucus,Urine 3+ /HPF
[2020-05-02 16:33] LABS: Partial Thromboplastin Time 31.5 Sec. (24.2-36.6)
[2020-05-02 16:35] LABS: Protein,Urine >500 mg/dL (Negative); WBC,Urine > 182.0 /HPF (0.0-6.0)
[2020-05-02 16:43] LABS: Alanine Aminotransferase 10 units/L (7-56); Albumin 3.7 g/dL (3.9-5); BUN/Creatinine Ratio 14; Blood Urea Nitrogen 20 mg/dL (7-17); Calcium 9.5 mg/dL (8.4-10.2); Hemolysis Index 35
[2020-05-02 16:46] LABS: Bilirubin,Direct < 0.2 mg/dL (0-0.2)
--- NOTE | 2020-05-02 17:42 | Emergency Department Report ---
ED Neuro Deficit HPI - General Chief Complaint: Neuro Symptoms/Deficit Stated Complaint: STROKE Time Seen by Provider: 05/02/20 14:52 Source: EMS Mode of arrival: Stretcher Limitations: Altered Mental Status - History of Present Illness Initial Comments: This is a 79-year-old female who was transported to this facility as a code stroke. I am told that she has had periodic episodes of the same or similar to this that have prior been diagnosed as CVA. She was transported by medics who described a "blown pupil on the right". Apparently the patient does have quite immature cataract in that eye on exam. In any case the patient was extremely lethargic/obtunded on arrival. He did not appear to have any focal neurological syndrome. There was no specific report of focal weakness or numbness. Patient was found to have a rectal temperature of 94 F. Patient was admitted here in 2018 for altered mental status among other problems. Discharge summary Hospitalization Reason for admission: syncope, bradycardia, dementia Condition: Stable Hospital course: Admission H/P 77 YO Female Personal Fci Resident with HTN, Dementia, Hypothyroidism, Encephalopathy, Anxiety presents to ED for evaluation. Pt is confused and unable to provide history. Pt history taken from her caregiver. As per caregiver, the patient was in the restroom and having a bowel movement whe she suddenly lost consciousness, and fell onto the floor. Pt was found to be unresponsive. EMS was notified, and upon arrival the patient was found to be hypotensive and bradycardic. The patient was transported to [facility] for further care and evaluation. Pt seen and evaluated in ED and found to have symptomatic bradycardia, as well as Encephalopathy. Pt admitted to telemetry. Cardiology consulted in ED. Patient was admitted to the floor for symptomatic bradycardia with syncope and cardiology evaluated her D/C her metoprolol followed and her HR was in the mid 50's no symptoms and discharged back to SNF. patient was given procardia for HTN and discontinued Toprol. patient was hemodynamically stable at the time of discharge. Appropriate medication scripts were given. Disposition: [id number]/[id number] SNF [facility] Time spent for discharge: 35 minutes - Discharge Diagnoses (1) Symptomatic bradycardia Status: Acute (2) Syncope Status: Acute Qualifiers: Encounter type: initial encounter (3) Dementia Status: Acute Qualifiers: Alzheimer's disease onset: other onset Dementia behavioral disturbance: with behavioral disturbance (4) HTN (hypertension) Status: Acute Qualifiers: Hypertension type: essential hypertension Qualified Code(s): I10 - Essential (primary) hypertension (5) Hypothyroid Status: Acute Qualifiers: Hypothyroidism type: unspecified Qualified Code(s): E03.9 - Hypothyroidism, unspecified - Related Data Home Medications: Home Medications Medication Instructions Recorded Confirmed Last Taken Donepezil HCl 23 mg PO DAILY 04/19/18 05/02/20 Unknown bisacodyL [Dulcolax tab] 10 mg PO DAILY 04/19/18 05/02/20 Unknown hydrALAZINE [Apresoline TAB] 25 mg PO BID 04/19/18 05/02/20 Unknown Levothyroxine [Synthroid] 88 mcg PO QAM 05/02/20 05/02/20 Unknown Allergies/Adverse Reactions: Allergies Allergy/AdvReac Type Severity Reaction Status Date / Time valsartan Allergy Angioedema Verified 04/19/18 14:23 ED Review of Systems ROS: Stated complaint: STROKE Other details as noted in HPI Comment: Unobtainable due to pts medical conditions ED Past Medical Hx - Past Medical History Previous Medical History?: Yes Hx Hypertension: Yes Hx Congestive Heart Failure: No Hx Diabetes: No Hx Arthritis: Yes Hx Psychiatric Treatment: Yes (anxiety) Hx Asthma: No Hx COPD: No Hx Dementia: Yes Additional medical history: Hypothyroid - Surgical History Past Surgical History?: Yes Hx Cholecystectomy: Yes Additional Surgical History: back and hysterectomy - Social History Smoking Status: Never Smoker Substance Use Type: None - Medications Home Medications: Home Medications Medication Instructions Recorded Confirmed Last Taken Type Donepezil HCl 23 mg PO DAILY 04/19/18 05/02/20 Unknown History bisacodyL [Dulcolax tab] 10 mg PO DAILY 04/19/18 05/02/20 Unknown History hydrALAZINE [Apresoline TAB] 25 mg PO BID 04/19/18 05/02/20 Unknown History Levothyroxine [Synthroid] 88 mcg PO QAM 05/02/20 05/02/20 Unknown History ED Neuro Physical Exam - General Limitations: Altered Mental Status General appearance: obtunded Suspected Stroke: No (Stroke would be unlikely) - Head Head exam: Present: atraumatic - Eye Eye exam: Present: other (Cataract on right). Absent: scleral icterus - ENT ENT exam: Present: mucous membranes moist - Neck Neck exam: Absent: tenderness, meningismus - Respiratory Respiratory exam: Present: normal lung sounds bilaterally. Absent: respiratory distress - Cardiovascular Cardiovascular Exam: Present: regular rate, normal rhythm. Absent: systolic murmur, diastolic murmur, rubs, gallop - GI/Abdominal GI/Abdominal exam: Absent: soft, distended, tenderness, guarding, rebound - NIHSS Assessment Interval: Baseline - Other Other exam information: I do agree with the teleneurologist NIH score. However, in the largely obtunded patient the score is not Directly applicable in my opinion. 1A: Level of Consciousness - Postures or Unresponsive + 3 1B: Ask Month and Age - Could Not Answer Either Question Correctly + 2 1C: Blink Eyes & Squeeze Hands - Performs 0 Tasks + 2 2: Test Horizontal Extraocular Movements - Normal + 0 3: Test Visual [place] - No Visual Loss + 0 4: Test Facial Palsy (Use Grimace if Obtunded) - Normal symmetry + 0 5A: Test Left Arm Motor Drift - No Effort Against Crump + 3 5B: Test Right Arm Motor Drift - No Movement + 4 6A: Test Left Leg Motor Drift - No Movement + 4 6B: Test Right Leg Motor Drift - No Movement + 4 7: Test Limb Ataxia (FNF/Heel-Tompkins) - Does Not Understand + 0 8: Test Sensation - Normal; No sensory loss + 0 9: Test Language/Aphasia - Coma/Unresponsive + 3 10: Test Dysarthria - Normal + 0 11: Test Extinction/Inattention - No abnormality + 0 ED Course Vital Signs 05/02/20 05/02/20 05/02/20 16:12 16:19 16:31 Temperature 94.1 F L Pulse Rate 56 L 46 L 57 L Respiratory 13 12 16 Rate Blood Pressure 130/52 Blood Pressure 117/78 [Right] O2 Sat by Pulse 100 100 99 Oximetry 05/02/20 05/02/20 05/02/20 16:45 17:01 17:15 Temperature Pulse Rate 56 L 61 63 Respiratory 17 12 11 L Rate Blood Pressure 130/52 107/53 107/53 Blood Pressure [Right] O2 Sat by Pulse 99 98 100 Oximetry 05/02/20 05/02/20 05/02/20 17:30 17:45 18:00 Temperature Pulse Rate 61 65 69 Respiratory 13 18 10 L Rate Blood Pressure 121/69 121/69 121/84 Blood Pressure [Right] O2 Sat by Pulse 100 100 100 Oximetry 05/02/20 18:38 Temperature 94.7 F L Pulse Rate 77 Respiratory Rate Blood Pressure Blood Pressure [Right] O2 Sat by Pulse Oximetry - Reevaluation(s) Reevaluation #1: Teleneurology consult noted. I spoke with the teleneurologist. She was in agreement that the patient's mental status was most probably secondary to a metabolic encephalopathy. She is not a candidate for TPA. She was referred to the hospitalist for admission. 05/02/20 18:18 05/02/20 18:20 I agree the patient is not a candidate for TPA as the findings are not indicative of stroke. Reevaluation #2: Patient was placed on a hypothermia blanket. She is treated empirically for sepsis. She is referred to the hospitalist staff for further evaluation and treatment. 05/02/20 18:22 - Lab Data Result diagrams: 05/02/20 14:53 05/02/20 14:53 Lab Results 05/02/20 05/02/20 05/02/20 Range/Units 14:53 14:53 14:53 WBC 7.4 (4.5-11.0) K/mm3 RBC 3.79 (3.65-5.03) M/mm3 Hgb 13.0 (10.1-14.3) gm/dl Hct 38.0 (30.3-42.9) % MCV 100 H (79-97) fl MCH 34 H (28-32) pg MCHC 34 (30-34) % RDW 13.4 (13.2-15.2) % Plt Count 209 (140-440) K/mm3 Lymph % (Auto) 16.6 (13.4-35.0) % [place] % (Auto) 7.0 (0.0-7.3) % Eos % (Auto) 0.5 (0.0-4.3) % Baso % (Auto) 0.6 (0.0-1.8) % Lymph # (Auto) 1.2 (1.2-5.4) K/mm3 [place] # (Auto) 0.5 (0.0-0.8) K/mm3 Eos # (Auto) 0.0 (0.0-0.4) K/mm3 Baso # (Auto) 0.0 (0.0-0.1) K/mm3 Seg Neutrophils % 75.3 H (40.0-70.0) % Seg Neutrophils # 5.5 (1.8-7.7) K/mm3 PT 15.2 H (12.2-14.9) Sec. INR 1.17 H (0.87-1.13) APTT 31.5 (24.2-36.6) Sec. Sodium 134 L (137-145) mmol/L Potassium 4.8 (3.6-5.0) mmol/L Chloride 98.4 (98-107) mmol/L Carbon Dioxide 20 L (22-30) mmol/L Anion Gap 20 mmol/L BUN 20 H (7-17) mg/dL Creatinine 1.4 H (0.6-1.2) mg/dL Estimated GFR 44 ml/min BUN/Creatinine Ratio 14 % Glucose 131 H (65-100) mg/dL Lactic Acid (0.7-2.0) mmol/L Calcium 9.5 (8.4-10.2) mg/dL Total Bilirubin 0.70 (0.1-1.2) mg/dL Direct Bilirubin < 0.2 (0-0.2) mg/dL Indirect Bilirubin 0.5 mg/dL AST 22 (5-40) units/L ALT 10 (7-56) units/L Alkaline Phosphatase 116 (35-129) units/L Ammonia (25-60) umol/L Total Creatine Kinase 81 (30-135) units/L Troponin T < 0.010 (0.00-0.029) ng/mL Total Protein 7.4 (6.3-8.2) g/dL Albumin 3.7 L (3.9-5) g/dL Albumin/Globulin Ratio 1.0 % TSH (0.270-4.200) mlU/mL Urine Color (Yellow) Urine Turbidity (Clear) Urine pH (5.0-7.0) Ur Specific Crump (1.003-1.030) Urine Protein (Negative) mg/dL Urine Glucose (UA) (Negative) mg/dL Urine Ketones (Negative) mg/dL Urine Blood (Negative) Urine Nitrite (Negative) Urine Bilirubin (Negative) Urine Urobilinogen (<2.0) mg/dL Ur Leukocyte Esterase (Negative) Urine WBC (Auto) (0.0-6.0) /HPF Urine RBC (Auto) (0.0-6.0) /HPF U Epithel Cells (Auto) (0-13.0) /HPF Urine Bacteria (Auto) (Negative) /HPF Urine WBC Clumps /HPF Hyaline Casts /LPF Urine Mucus /HPF Urine Opiates Screen Urine Methadone Screen Ur Barbiturates Screen Ur Phencyclidine Scrn Ur Amphetamines Screen U Benzodiazepines Scrn Urine Cocaine Screen U Marijuana (THC) Screen Drugs of Abuse Note Plasma/Serum Alcohol (0-0.07) % 05/02/20 05/02/20 05/02/20 Range/Units 14:53 14:53 15:53 WBC (4.5-11.0) K/mm3 RBC (3.65-5.03) M/mm3 Hgb (10.1-14.3) gm/dl Hct (30.3-42.9) % MCV (79-97) fl MCH (28-32) pg MCHC (30-34) % RDW (13.2-15.2) % Plt Count (140-440) K/mm3 Lymph % (Auto) (13.4-35.0) % [place] % (Auto) (0.0-7.3) % Eos % (Auto) (0.0-4.3) % Baso % (Auto) (0.0-1.8) % Lymph # (Auto) (1.2-5.4) K/mm3 [place] # (Auto) (0.0-0.8) K/mm3 Eos # (Auto) (0.0-0.4) K/mm3 Baso # (Auto) (0.0-0.1) K/mm3 Seg Neutrophils % (40.0-70.0) % Seg Neutrophils # (1.8-7.7) K/mm3 PT (12.2-14.9) Sec. INR (0.87-1.13) APTT (24.2-36.6) Sec. Sodium (137-145) mmol/L Potassium (3.6-5.0) mmol/L Chloride (98-107) mmol/L Carbon Dioxide (22-30) mmol/L Anion Gap mmol/L BUN (7-17) mg/dL Creatinine (0.6-1.2) mg/dL Estimated GFR ml/min BUN/Creatinine Ratio % Glucose (65-100) mg/dL Lactic Acid (0.7-2.0) mmol/L Calcium (8.4-10.2) mg/dL Total Bilirubin (0.1-1.2) mg/dL Direct Bilirubin (0-0.2) mg/dL Indirect Bilirubin mg/dL AST (5-40) units/L ALT (7-56) units/L Alkaline Phosphatase (35-129) units/L Ammonia (25-60) umol/L Total Creatine Kinase (30-135) units/L Troponin T (0.00-0.029) ng/mL Total Protein (6.3-8.2) g/dL Albumin (3.9-5) g/dL Albumin/Globulin Ratio % TSH 25.790 H (0.270-4.200) mlU/mL Urine Color Red (Yellow) Urine Turbidity Cloudy (Clear) Urine pH 5.0 (5.0-7.0) Ur Specific Crump 1.016 (1.003-1.030) Urine Protein >500 (Negative) mg/dL Urine Glucose (UA) Neg (Negative) mg/dL Urine Ketones Neg (Negative) mg/dL Urine Blood Lg (Negative) Urine Nitrite Neg (Negative) Urine Bilirubin Neg (Negative) Urine Urobilinogen 2.0 (<2.0) mg/dL Ur Leukocyte Esterase Lg (Negative) Urine WBC (Auto) > 182.0 H (0.0-6.0) /HPF Urine RBC (Auto) 90.0 (0.0-6.0) /HPF U Epithel Cells (Auto) 1.0 (0-13.0) /HPF Urine Bacteria (Auto) 1+ (Negative) /HPF Urine WBC Clumps 1+ /HPF Hyaline Casts 27 /LPF Urine Mucus 3+ /HPF Urine Opiates Screen Urine Methadone Screen Ur Barbiturates Screen Ur Phencyclidine Scrn Ur Amphetamines Screen U Benzodiazepines Scrn Urine Cocaine Screen U Marijuana (THC) Screen Drugs of Abuse Note Plasma/Serum Alcohol < 0.01 (0-0.07) % 05/02/20 05/02/20 05/02/20 Range/Units 15:53 Unknown Unknown WBC (4.5-11.0) K/mm3 RBC (3.65-5.03) M/mm3 Hgb (10.1-14.3) gm/dl Hct (30.3-42.9) % MCV (79-97) fl MCH (28-32) pg MCHC (30-34) % RDW (13.2-15.2) % Plt Count (140-440) K/mm3 Lymph % (Auto) (13.4-35.0) % [place] % (Auto) (0.0-7.3) % Eos % (Auto) (0.0-4.3) % Baso % (Auto) (0.0-1.8) % Lymph # (Auto) (1.2-5.4) K/mm3 [place] # (Auto) (0.0-0.8) K/mm3 Eos # (Auto) (0.0-0.4) K/mm3 Baso # (Auto) (0.0-0.1) K/mm3 Seg Neutrophils % (40.0-70.0) % Seg Neutrophils # (1.8-7.7) K/mm3 PT (12.2-14.9) Sec. INR (0.87-1.13) APTT (24.2-36.6) Sec. Sodium (137-145) mmol/L Potassium (3.6-5.0) mmol/L Chloride (98-107) mmol/L Carbon Dioxide (22-30) mmol/L Anion Gap mmol/L BUN (7-17) mg/dL Creatinine (0.6-1.2) mg/dL Estimated GFR ml/min BUN/Creatinine Ratio % Glucose (65-100) mg/dL Lactic Acid 1.70 (0.7-2.0) mmol/L Calcium (8.4-10.2) mg/dL Total Bilirubin (0.1-1.2) mg/dL Direct Bilirubin (0-0.2) mg/dL Indirect Bilirubin mg/dL AST (5-40) units/L ALT (7-56) units/L Alkaline Phosphatase (35-129) units/L Ammonia 31.0 (25-60) umol/L Total Creatine Kinase (30-135) units/L Troponin T (0.00-0.029) ng/mL Total Protein (6.3-8.2) g/dL Albumin (3.9-5) g/dL Albumin/Globulin Ratio % TSH (0.270-4.200) mlU/mL Urine Color (Yellow) Urine Turbidity (Clear) Urine pH (5.0-7.0) Ur Specific Crump (1.003-1.030) Urine Protein (Negative) mg/dL Urine Glucose (UA) (Negative) mg/dL Urine Ketones (Negative) mg/dL Urine Blood (Negative) Urine Nitrite (Negative) Urine Bilirubin (Negative) Urine Urobilinogen (<2.0) mg/dL Ur Leukocyte Esterase (Negative) Urine WBC (Auto) (0.0-6.0) /HPF Urine RBC (Auto) (0.0-6.0) /HPF U Epithel Cells (Auto) (0-13.0) /HPF Urine Bacteria (Auto) (Negative) /HPF Urine WBC Clumps /HPF Hyaline Casts /LPF Urine Mucus /HPF Urine Opiates Screen Negative Urine Methadone Screen Negative Ur Barbiturates Screen Negative Ur Phencyclidine Scrn Negative Ur Amphetamines Screen Negative U Benzodiazepines Scrn Negative Urine Cocaine Screen Negative U Marijuana (THC) Screen Negative Drugs of Abuse Note Disclamer Plasma/Serum Alcohol (0-0.07) % - EKG Data -: EKG Interpreted by Md EKG shows normal: sinus rhythm, intervals, QRS complexes, ST-T waves Rate: normal Interpretation: no acute changes, other (Leftward axis) - Radiology Data Radiology results: report reviewed (Chest x-ray, EKG no acute finding) Critical Care Time: Yes Critical care time in (mins) excluding proc time.: 60 Critical care attestation.: If time is entered above; I have spent that time in minutes in the direct care of this critically ill patient, excluding procedure time. ED Disposition Clinical Impression: Acute metabolic encephalopathy Hypothyroid Qualifiers: Hypothyroidism type: unspecified Qualified Code(s): E03.9 - Hypothyroidism, unspecified Hypothermia Qualifiers: Encounter type: initial encounter Qualified Code(s): T68.XXXA - Hypothermia, initial encounter Disposition: OP ADMIT IP TO THIS HOSP Is pt being admited?: Yes Does the pt Need Aspirin: Yes Condition: Stable Time of Disposition: 18:23
[2020-05-02] MEDS ORDERED: ASPIRIN 300 MG RECT SUPP PR ONE (18:23)
--- NOTE | 2020-05-02 19:18 | History and Physical Report ---
History of Present Illness Chief complaint: She is confused History of present illness: 79 YO Female Personal Fdc Resident with HTN, Dementia, Hypothyroidism, Encephalopathy, Anxiety presents to ED for evaluation. Pt is confused and unable to provide history. Pt history taken from her caregiver. As per caregiver, the patient. EMS was notified, and upon arrival the patient was found to be hypotensive and bradycardic an hypthermic. EMS was notivied and upon arrival the patient was found to be in distress. The patient was transported to [facility] for further care and evaluation. Pt seen and evaluated in ED. All lab and imaging studies reviewed. The patient was found to have symptoms consistent with Myxedema Coma, PARIS with ATN, Metabolic Encephalopathy, as well as UTI. The patient is confused and lethargic but has a positive gag reflex and is able to protect her airway. Pt admitted to [facility] and treated with IV Synthroid therapy. No reports of fever, chills, productive cough, skin rash, recent ill contacts, o r known exposure to COVID-19. Prior admission on 04/24/2018 reviewed. All medication listed at time of admission has been reconciled. Advanced care planning conducted in the emergency department. Past History Past Medical History: hypertension, other (See HPI) Past Surgical History: cholecystectomy, hysterectomy, Other (back surgery) Social history: single Family history: hypertension Medications and Allergies Allergies Allergy/AdvReac Type Severity Reaction Status Date / Time valsartan Allergy Angioedema Verified 04/19/18 14:23 Home Medications Medication Instructions Recorded Confirmed Last Taken Type Donepezil HCl 23 mg PO DAILY 04/19/18 05/02/20 Unknown History bisacodyL [Dulcolax tab] 10 mg PO DAILY 04/19/18 05/02/20 Unknown History hydrALAZINE [Apresoline TAB] 25 mg PO BID 04/19/18 05/02/20 Unknown History Levothyroxine [Synthroid] 88 mcg PO QAM 05/02/20 05/02/20 Unknown History Review of Systems ROS unobtainable: due to mental status Exam - Constitutional Vitals: Temp Pulse Resp BP Pulse Ox 94.7 F L 77 10 L 121/84 100 05/02/20 18:38 05/02/20 18:38 05/02/20 18:00 05/02/20 18:00 05/02/20 18:00 General appearance: Present: mild distress - EENT Eyes: Present: PERRL ENT: hearing decreased - Neck Neck: Present: supple - Respiratory Respiratory: bilateral: CTA - Cardiovascular Rhythm: other (hypothermia) Heart Sounds: Present: S1 & S2. Absent: rub, click - Extremities Extremities: pulses symmetrical, No edema - Abdominal General gastrointestinal: Present: soft, non-tender, non-distended - Integumentary Integumentary: Present: clear, dry - Musculoskeletal Musculoskeletal: generalized weakness - Psychiatric Psychiatric: no appropriate mood/affect, no intact judgment & insight, no memory intact - Neurologic Neurologic: CNII-XII intact, no focal deficits, moves all extremities, no gait normal HEART Score - HEART Score Troponin: Troponin T < 0.010 ng/mL (0.00-0.029) 05/02/20 14:53 Results - Labs CBC & Chem 7: 05/02/20 14:53 05/02/20 14:53 Labs: Abnormal lab results 05/02/20 05/02/20 05/02/20 Range/Units 14:53 14:53 14:53 MCV 100 H (79-97) fl MCH 34 H (28-32) pg Seg Neutrophils % 75.3 H (40.0-70.0) % PT 15.2 H (12.2-14.9) Sec. INR 1.17 H (0.87-1.13) Sodium 134 L (137-145) mmol/L Carbon Dioxide 20 L (22-30) mmol/L BUN 20 H (7-17) mg/dL Creatinine 1.4 H (0.6-1.2) mg/dL Glucose 131 H (65-100) mg/dL Albumin 3.7 L (3.9-5) g/dL TSH (0.270-4.200) mlU/mL Urine WBC (Auto) (0.0-6.0) /HPF 05/02/20 05/02/20 Range/Units 14:53 15:53 MCV (79-97) fl MCH (28-32) pg Seg Neutrophils % (40.0-70.0) % PT (12.2-14.9) Sec. INR (0.87-1.13) Sodium (137-145) mmol/L Carbon Dioxide (22-30) mmol/L BUN (7-17) mg/dL Creatinine (0.6-1.2) mg/dL Glucose (65-100) mg/dL Albumin (3.9-5) g/dL TSH 25.790 H (0.270-4.200) mlU/mL Urine WBC (Auto) > 182.0 H (0.0-6.0) /HPF Assessment and Plan - Patient Problems (1) Myxedema coma Current Visit: Yes Status: Acute Plan to address problem: CT head, neuro check, thyroid panel, IV Synthroid replacement therapy, supportive care, warming blanket, IV fluid resuscitation therapy. (2) Metabolic encephalopathy Current Visit: Yes Status: Acute Plan to address problem: CT head, neuro check, seizure precaution, aspiration precautions, BMP, supportive care. (3) PARIS (acute kidney injury) Current Visit: Yes Status: Acute Plan to address problem: IV fluid resuscitation therapy, monitor urine output every shift, avoid nephrotoxic agents, repeat BMP in a.m. to monitor serum creatinine. (4) Urinary tract infection Current Visit: Yes Status: Acute Qualifiers: Encounter type: initial encounter Plan to address problem: CBC, urinalysis, IV antibiotic therapy (5) Vascular dementia Current Visit: Yes Status: Acute Qualifiers: Dementia behavioral disturbance: without behavioral disturbance Qualified Code(s): F01.50 - Vascular dementia without behavioral disturbance Plan to address problem: Verbal prompting, verbal redirection, benzodiazepine therapy as clinically indicated. (6) DVT prophylaxis Current Visit: No Status: Acute Plan to address problem: SCD to bilateral lower extremities while in bed, prophylactic anticoagulation. (7) Advance care planning Current Visit: Yes Status: Acute Plan to address problem: Disease education conducted, patient is full code, prognosis discussed, +30 minutes.
[2020-05-02] MEDS ORDERED: HEPARIN 5,000 UNIT/1 ML VIAL ONE (22:51)
[2020-05-02] MEDS: SODIUM CHLORIDE 0.9% 1000 ML 1,000 ML IV SCH (22:57)
[2020-05-02] MEDS: HEPARIN 5,000 UNIT/1 ML VIAL SUB-Q SCH (22:58)
[2020-05-02] MEDS: LEVOTHYROXINE 100 MCG INJ IV SCH (22:58)
[2020-05-03] MEDS ORDERED: hydrALAZINE 20 MG/1 ML INJ IV ONE (01:36)
[2020-05-03] MEDS ORDERED: hydrALAZINE 20 MG/1 ML INJ ONE (01:37)
[2020-05-03 05:26] LABS: Albumin 3.8 g/dL (3.9-5); Calcium 9.7 mg/dL (8.4-10.2)
[2020-05-03] MEDS: LEVOTHYROXINE 100 MCG INJ IV SCH (06:54)
--- NOTE | 2020-05-03 10:44 | Progress Note ---
Assessment and Plan Assessment and plan: 79 YO Female Personal Correction Resident with HTN, Dementia, Hypothyroidism, Encephalopathy, Anxiety presents to ED for evaluation. Pt is confused and unable to provide history. Pt history taken from her caregiver. As per caregiver, the patient. EMS was notified, and upon arrival the patient was found to be hypotensive and bradycardic an hypthermic. EMS was notivied and upon arrival the patient was found to be in distress. The patient was transported to [facility] for further care and evaluation. Pt seen and evaluated in ED. All lab and imaging studies reviewed. The patient was found to have symptoms consistent with Myxedema Coma, PARIS with ATN, Metabolic Encephalopathy, as well as UTI. The patient is confused and lethargic but has a positive gag reflex and is able to protect her airway. Pt admitted to [facility] and treated with IV Synthroid therapy. No reports of fever, chills, productive cough, skin rash, recent ill contacts, or known exposure to COVID-19. Prior admission on 04/24/2018 reviewed. All medication listed at time of admission has been reconciled. Advanced care planning conducted in the emergency department. Acute metabolic encephlaopathy ? Myxedema coma vs tsh Producing Tumor TIA with possible underlying CVA Presumed sepsis secondary to Cystitis Hypertensive urgency PARIS on ckd Secondary to vasomotor nephropathy Acute Cystitis Vascular Dementia Plan Start cardene drip with goal of gradually reducing BP NOT LOWER THAN 180 in the first 24 hrs Await complete work up of Thyroid organs Obtain home medacations Patient known to have hypothrodisim, continue the IV synthroid Monitor for symptomatic Bradyacardia Continue Abx for possible Sepsis DVT/GI prophy History Interval history: Patient seen and examined, remains very lethargic, sytolic BP >220 Hospitalist Physical - Physical exam Narrative exam: General appearance: Present: mild distress, in - EENT Eyes: Present: PERRL ENT: hearing decreased - Neck Neck: Present: supple - Respiratory Respiratory: bilateral: CTA - Cardiovascular Rhythm: other (hypothermia) Heart Sounds: Present: S1 & S2. Absent: rub, click - Extremities Extremities: pulses symmetrical, No edema - Abdominal General gastrointestinal: Present: soft, non-tender, non-distended - Integumentary Integumentary: Present: clear, dry - Musculoskeletal Musculoskeletal: generalized weakness - Psychiatric Psychiatric: no appropriate mood/affect, no intact judgment & insight, no memory intact - Neurologic Neurologic: CNII-XII intact, no focal deficits, moves all extremities, no gait normal - Constitutional Vitals: Temp Pulse Resp BP Pulse Ox 98 F 88 15 185/87 87 05/02/20 22:08 05/03/20 06:30 05/03/20 06:30 05/03/20 06:30 05/03/20 06:30 General appearance: Present: mild distress HEART Score - HEART Score Troponin: Troponin T < 0.010 ng/mL (0.00-0.029) 05/02/20 14:53 Results - Labs CBC & Chem 7: 05/02/20 14:53 05/03/20 04:45 Labs: Laboratory Last Values WBC 7.4 K/mm3 (4.5-11.0) 05/02/20 14:53 RBC 3.79 M/mm3 (3.65-5.03) 05/02/20 14:53 Hgb 13.0 gm/dl (10.1-14.3) 05/02/20 14:53 Hct 38.0 % (30.3-42.9) 05/02/20 14:53 MCV 100 fl (79-97) H 05/02/20 14:53 MCH 34 pg (28-32) H 05/02/20 14:53 MCHC 34 % (30-34) 05/02/20 14:53 RDW 13.4 % (13.2-15.2) 05/02/20 14:53 Plt Count 209 K/mm3 (140-440) 05/02/20 14:53 Lymph % (Auto) 16.6 % (13.4-35.0) 05/02/20 14:53 [place] % (Auto) 7.0 % (0.0-7.3) 05/02/20 14:53 Eos % (Auto) 0.5 % (0.0-4.3) 05/02/20 14:53 Baso % (Auto) 0.6 % (0.0-1.8) 05/02/20 14:53 Lymph # (Auto) 1.2 K/mm3 (1.2-5.4) 05/02/20 14:53 [place] # (Auto) 0.5 K/mm3 (0.0-0.8) 05/02/20 14:53 Eos # (Auto) 0.0 K/mm3 (0.0-0.4) 05/02/20 14:53 Baso # (Auto) 0.0 K/mm3 (0.0-0.1) 05/02/20 14:53 Seg Neutrophils % 75.3 % (40.0-70.0) H 05/02/20 14:53 Seg Neutrophils # 5.5 K/mm3 (1.8-7.7) 05/02/20 14:53 PT 15.2 Sec. (12.2-14.9) H 05/02/20 14:53 INR 1.17 (0.87-1.13) H 05/02/20 14:53 APTT 31.5 Sec. (24.2-36.6) 05/02/20 14:53 Sodium 139 mmol/L (137-145) 05/03/20 04:45 Potassium 4.3 mmol/L (3.6-5.0) 05/03/20 04:45 Chloride 100.7 mmol/L (98-107) 05/03/20 04:45 Carbon Dioxide 23 mmol/L (22-30) 05/03/20 04:45 Anion Gap 20 mmol/L 05/03/20 04:45 BUN 23 mg/dL (7-17) H 05/03/20 04:45 Creatinine 1.5 mg/dL (0.6-1.2) H 05/03/20 04:45 Estimated GFR 41 ml/min 05/03/20 04:45 BUN/Creatinine Ratio 15 % 05/03/20 04:45 Glucose 106 mg/dL (65-100) H 05/03/20 04:45 Lactic Acid 1.70 mmol/L (0.7-2.0) 05/02/20 Unknown Calcium 9.7 mg/dL (8.4-10.2) 05/03/20 04:45 Total Bilirubin 0.50 mg/dL (0.1-1.2) 05/03/20 04:45 Direct Bilirubin < 0.2 mg/dL (0-0.2) 05/02/20 14:53 Indirect Bilirubin 0.5 mg/dL 05/02/20 14:53 AST 24 units/L (5-40) 05/03/20 04:45 ALT 11 units/L (7-56) 05/03/20 04:45 Alkaline Phosphatase 114 units/L (35-129) 05/03/20 04:45 Ammonia 31.0 umol/L (25-60) 05/02/20 Unknown Total Creatine Kinase 81 units/L (30-135) 05/02/20 14:53 Troponin T < 0.010 ng/mL (0.00-0.029) 05/02/20 14:53 Total Protein 7.5 g/dL (6.3-8.2) 05/03/20 04:45 Albumin 3.8 g/dL (3.9-5) L 05/03/20 04:45 Albumin/Globulin Ratio 1.0 % 05/03/20 04:45 TSH 25.790 mlU/mL (0.270-4.200) H 05/02/20 14:53 Urine Color Red (Yellow) 05/02/20 15:53 Urine Turbidity Cloudy (Clear) 05/02/20 15:53 Urine pH 5.0 (5.0-7.0) 05/02/20 15:53 Ur Specific [place] 1.016 (1.003-1.030) 05/02/20 15:53 Urine Protein >500 mg/dL (Negative) 05/02/20 15:53 Urine Glucose (UA) Neg mg/dL (Negative) 05/02/20 15:53 Urine Ketones Neg mg/dL (Negative) 05/02/20 15:53 Urine Blood Lg (Negative) 05/02/20 15:53 Urine Nitrite Neg (Negative) 05/02/20 15:53 Urine Bilirubin Neg (Negative) 05/02/20 15:53 Urine Urobilinogen 2.0 mg/dL (<2.0) 05/02/20 15:53 Ur Leukocyte Esterase Lg (Negative) 05/02/20 15:53 Urine WBC (Auto) > 182.0 /HPF (0.0-6.0) H 05/02/20 15:53 Urine RBC (Auto) 90.0 /HPF (0.0-6.0) 05/02/20 15:53 U Epithel Cells (Auto) 1.0 /HPF (0-13.0) 05/02/20 15:53 Urine Bacteria (Auto) 1+ /HPF (Negative) 05/02/20 15:53 Urine WBC Clumps 1+ /HPF 05/02/20 15:53 Hyaline Casts 27 /LPF 05/02/20 15:53 Urine Mucus 3+ /HPF 05/02/20 15:53 Urine Opiates Screen Negative 05/02/20 15:53 Urine Methadone Screen Negative 05/02/20 15:53 Ur Barbiturates Screen Negative 05/02/20 15:53 Ur Phencyclidine Scrn Negative 05/02/20 15:53 Ur Amphetamines Screen Negative 05/02/20 15:53 U Benzodiazepines Scrn Negative 05/02/20 15:53 Urine Cocaine Screen Negative 05/02/20 15:53 U Marijuana (THC) Screen Negative 05/02/20 15:53 Drugs of Abuse Note Disclamer 05/02/20 15:53 Plasma/Serum Alcohol < 0.01 % (0-0.07) 05/02/20 14:53 Microbiology: Microbiology 05/02/20 16:00 Peripheral/Venous Blood Culture - Preliminary Culture in Progress 05/02/20 16:00 Peripheral/Venous Blood Culture - Preliminary Culture in Progress Newman/IV: IV Catheter Type [Left INT / Saline Lock Antecubital] Active Medications - Current Medications Current Medications: Generic Name Dose Route Start Last Admin Trade Name Freq PRN Reason Stop Dose Admin Bisacodyl 10 mg 05/04/20 10:00 Dulcolax PO DAILY [facility] Heparin Sodium (Porcine) 5,000 unit 05/02/20 22:00 05/02/20 22:58 Heparin SUB-Q 5,000 unit Q12HR PITA Administration Hydralazine HCl 25 mg 05/03/20 22:00 Apresoline PO BID PITA Sodium Chloride 1,000 mls @ 100 mls/hr 05/02/20 19:30 05/02/20 22:57 Nacl 0.9% 1000 Ml IV 100 mls/hr DIRECT PITA Administration Cefepime HCl 1 gm in 100 mls @ 200 mls/hr 05/03/20 10:00 Cefepime/Ns 1 Gm/100 Ml IV Q24HR [facility] Protocol Levothyroxine Sodium 100 mcg 05/02/20 20:00 05/03/20 06:54 Synthroid IV 100 mcg DAILY@0600 [facility] Administration Miscellaneous Medication 23 mg 05/04/20 10:00 Donepezil Hcl [Donepezil Hcl] PO DAILY PITA Sodium Chloride 10 ml 05/02/20 22:00 05/02/20 22:58 Sodium Chloride Flush Syringe 10 Ml IV 10 ml BID PITA Administration Sodium Chloride 10 ml 05/02/20 19:19 Sodium Chloride Flush Syringe 10 Ml IV PRN PRN LINE FLUSH
[2020-05-03] MEDS ORDERED: CEFEPIME/NS 1 GM/100 ML 1 GM/100 ML BAG IV ONE (10:56)
[2020-05-03] MEDS ORDERED: HEPARIN 5,000 UNIT/1 ML VIAL ONE (10:57)
[2020-05-03] MEDS: CEFEPIME/NS 1 GM/100 ML 1 GM/100 ML BAG IV SCH (11:08)
[2020-05-03] MEDS: HEPARIN 5,000 UNIT/1 ML VIAL SUB-Q SCH ×2 (11:09→22:05)
[2020-05-03] MEDS ORDERED: niCARdipine DRIP 40 MG/200 ML BAG ONE (13:57)
[2020-05-03] MEDS ORDERED: niCARdipine DRIP 40 MG/200 ML BAG IV ONE (14:00)
--- NOTE | 2020-05-03 14:44 | Consultation ---
History of Present Illness - Reason for Consult Consult date: 05/03/20 acute renal failure Requesting physician: SKYE MAHER - History of Present Illness This is a 79 yo F with past medical history of HTN, Dementia, Hypothyroidism, Encephalopathy, Anxiety, who presents to [facility] ER with complaints of confusion, change of mental status. EMS was called and upon arrival patient was found to be hypotensive, bradycardic and hypothermic. Labs in ER showed significantly e levated TSH > 25, patient was admitted to the ICU for possible myxedema coma as well as UTI , since UA showed > 180WBC/HPF. patient was initiated on IV synthroid therapy and on IV ABXs. After initiation of IV synthroid pt developed hypertensive emergency requiring initiation of cardene gtt. labs also showed elevated BUN/Cr at 23/1.5mg/dl for which renal consult is requested. Previous Cr was around 1.1-1.2 in 2018. Past History Past Medical History: hypertension, other (See HPI) Past Surgical History: cholecystectomy, hysterectomy, Other (back surgery) Social history: single Family history: hypertension Medications and Allergies Allergies Allergy/AdvReac Type Severity Reaction Status Date / Time valsartan Allergy Angioedema Verified 04/19/18 14:23 Home Medications Medication Instructions Recorded Confirmed Last Taken Type Donepezil HCl 23 mg PO DAILY 04/19/18 05/02/20 Unknown History bisacodyL [Dulcolax tab] 10 mg PO DAILY 04/19/18 05/02/20 Unknown History hydrALAZINE [Apresoline TAB] 25 mg PO BID 04/19/18 05/02/20 Unknown History Levothyroxine [Synthroid] 88 mcg PO QAM 05/02/20 05/02/20 Unknown History Active Meds: Active Medications Bisacodyl (Dulcolax) 10 mg PO DAILY PITA Donepezil HCl (Aricept) 20 mg PO DAILY PITA Heparin Sodium (Porcine) (Heparin) 5,000 unit SUB-Q Q12HR PITA Last Admin: 05/03/20 11:09 Dose: 5,000 unit Documented by: Hydralazine HCl (Apresoline) 25 mg PO BID PITA Sodium Chloride (Nacl 0.9% 1000 Ml) 1,000 mls @ 100 mls/hr IV DIRECT PITA Last Admin: 05/02/20 22:57 Dose: 100 mls/hr Documented by: Cefepime HCl (Cefepime/Ns 1 Gm/100 Ml) 1 gm in 100 mls @ 200 mls/hr IV Q24HR [facility]; Protocol Last Admin: 05/03/20 11:08 Dose: 200 mls/hr Documented by: Nicardipine/Sodium Chloride (Cardene Drip 40 Mg/200 Ml) 40 mg in 200 mls @ 25 mls/hr IV ONCE ONE; Protocol Stop: 05/03/20 21:59 Levothyroxine Sodium (Synthroid) 100 mcg IV DAILY@0600 [facility] Last Admin: 05/03/20 06:54 Dose: 100 mcg Documented by: Sodium Chloride (Sodium Chloride Flush Syringe 10 Ml) 10 ml IV BID [facility] Last Admin: 05/03/20 11:09 Dose: 10 ml Documented by: Sodium Chloride (Sodium Chloride Flush Syringe 10 Ml) 10 ml IV PRN PRN PRN Reason: LINE FLUSH Review of Systems ROS unobtainable: due to mental status Exam - Vital Signs Vital signs: Vital Signs Temp Pulse Resp BP Pulse Ox 94.1 F L 56 L 13 117/78 100 05/02/20 16:12 05/02/20 16:12 05/02/20 16:12 05/02/20 16:12 05/02/20 16:12 - General Appearance General appearance: well-developed, appears stated age, comatose EENT: ATNC, PERRL, mucous membranes moist Neck: Present: neck supple Respiratory: Clear to Ascultation Heart: regular, S1S2 Gastrointestinal: Present: normoactive bowel sounds Integumentary: no rash Neurologic: confused, disoriented Results - Lab Results 05/02/20 14:53 05/03/20 04:45 Most recent lab results Calcium 9.7 mg/dL (8.4-10.2) 05/03/20 04:45 Assessment and Plan - Patient Problems (1) PARIS (acute kidney injury) Current Visit: Yes Status: Acute Plan to address problem: most likely secondary to pre-renal azotemia in the setting of severe hypothyroidism/possible myxedema coma and UTI. pt received 2L IV NS bolus, recommend to hold maintenance IVF given elevated BP. UA showed > 500+ protein, large blood, check urine lytes, urine P/C ratio. Obtain vasculitis/acute GN panel incl. MAJOR, ANCA, Anti GBM, c3/4, hepatitis panel. avoid further nephrotoxins, NSAIDs IV contrast. Pt is about to be started on cardene gtt, target BP ~160/80s. (2) Acute metabolic encephalopathy Current Visit: Yes Status: Acute Plan to address problem: possibly 2/2 myxedema coma (3) Urinary tract infection Current Visit: Yes Status: Acute Qualifiers: Encounter type: initial encounter Plan to address problem: f/u UCx, cont IV ABX with cefepime (4) HTN (hypertension) Current Visit: No Status: Acute Qualifiers: Hypertension type: essential hypertension Qualified Code(s): I10 - Essential (primary) hypertension Plan to address problem: to start cardene gtt
[2020-05-03] MEDS: DONEPEZIL 10 MG TAB PO SCH (14:47)
[2020-05-03] MEDS: hydrALAZINE 25 MG TAB PO SCH (22:10)
[2020-05-04 01:04] LABS: Creatinine,Urine 63.6 mg/dL (0.1-20.0)
[2020-05-04] MEDS: SODIUM CHLORIDE 0.9% 1000 ML 1,000 ML IV SCH (01:58)
[2020-05-04] MEDS: hydrALAZINE 20 MG/1 ML INJ IV PRN (03:00)
--- NOTE | 2020-05-04 07:29 | Progress Note ---
Assessment and Plan Assessment and plan: 79 YO Female Personal Long-Term Resident with HTN, Dementia, Hypothyroidism, Encephalopathy, Anxiety presents to ED for evaluation. Pt is confused and unable to provide history. Pt history taken from her caregiver. As per caregiver, the patient. EMS was notified, and upon arrival the patient was found to be hypotensive and bradycardic an hypthermic. EMS was notivied and upon arrival the patient was found to be in distress. The patient was transported to [facility] for further care and evaluation. Pt seen and evaluated in ED. All lab and imaging studies reviewed. The patient was found to have symptoms consistent with Myxedema Coma, PARIS with ATN, Metabolic Encephalopathy, as well as UTI. The patient is confused and lethargic but has a positive gag reflex and is able to protect her airway. Pt admitted to [facility] [place] and treated with IV Synthroid therapy. No reports of fever, chills, productive cough, skin rash, recent ill contacts, or known exposure to COVID-19. Prior admission on 04/24/2018 reviewed. All medication listed at time of admission has been reconciled. Advanced care planning conducted in the emergency department. 05/04: Discussed with Niece, states at baseline, she is confused, but can talk some, also walks but very slow. she needs assistance with feeding and all other activities of daily living. The patients Niece, is also the Guardian according to her. [facility] is Leah [facility] [phone] Primary care group- [phone] Pharmacy [phone] Discussed extensively with the nurse will monitor patient's blood pressure which is labile at this time. Await repeat studies as noted below Acute metabolic encephlaopathy Doubt Myxedema coma possible TSH Producing Tumor TIA with possible underlying CVA Presumed sepsis secondary to Cystitis Hypertensive urgency PARIS on ckd Secondary to vasomotor nephropathy Acute Cystitis Vascular Dementia Plan-UPDATED Stop cardene drip- wean off Monitor BP Nephrology input noted, hold fluids, vasculitis work up ongoing MRI in[place] for Pituitary ademona VS CVA Await complete work up of Thyroid organs Continue to monitor Mental status changes Obtain home medications Patient known to have hypothrodisim, Hold off IV synthroid, repeat TSH and free T4 Monitor for symptomatic Bradyacardia Continue Abx for possible Sepsis DVT/GI prophy History Interval history: Patient seen and examined, improving. Blood pressure much improved although hypotensive. Hospitalist Physical - Physical exam Narrative exam: General appearance: Present: Resting comfortably. - EENT Eyes: Present: PERRL ENT: hearing decreased - Neck Neck: Present: supple - Respiratory Respiratory: bilateral: CTA - Cardiovascular Rhythm: other Heart Sounds: Present: S1 & S2. Absent: rub, click - Extremities Extremities: pulses symmetrical, No edema - Abdominal General gastrointestinal: Present: soft, non-tender, non-distended - Integumentary Integumentary: Present: clear, dry - Musculoskeletal Musculoskeletal: generalized weakness - Psychiatric Psychiatric: no appropriate mood/affect, no intact judgment & insight, no memory intact - Neurologic Neurologic: CNII-XII intact, no focal deficits, moves all extremities, no gait normal - Constitutional Vitals: Temp Pulse Resp BP Pulse Ox 97.0 F L 59 L 11 L 139/59 100 05/04/20 04:00 05/04/20 04:21 05/04/20 04:21 05/04/20 04:21 05/04/20 04:21 General appearance: Present: mild distress HEART Score - HEART Score Troponin: Troponin T < 0.010 ng/mL (0.00-0.029) 05/02/20 14:53 Results - Labs CBC & Chem 7: 05/02/20 14:53 05/03/20 04:45 Labs: Laboratory Last Values WBC 7.4 K/mm3 (4.5-11.0) 05/02/20 14:53 RBC 3.79 M/mm3 (3.65-5.03) 05/02/20 14:53 Hgb 13.0 gm/dl (10.1-14.3) 05/02/20 14:53 Hct 38.0 % (30.3-42.9) 05/02/20 14:53 MCV 100 fl (79-97) H 05/02/20 14:53 MCH 34 pg (28-32) H 05/02/20 14:53 MCHC 34 % (30-34) 05/02/20 14:53 RDW 13.4 % (13.2-15.2) 05/02/20 14:53 Plt Count 209 K/mm3 (140-440) 05/02/20 14:53 Lymph % (Auto) 16.6 % (13.4-35.0) 05/02/20 14:53 [place] % (Auto) 7.0 % (0.0-7.3) 05/02/20 14:53 Eos % (Auto) 0.5 % (0.0-4.3) 05/02/20 14:53 Baso % (Auto) 0.6 % (0.0-1.8) 05/02/20 14:53 Lymph # (Auto) 1.2 K/mm3 (1.2-5.4) 05/02/20 14:53 [place] # (Auto) 0.5 K/mm3 (0.0-0.8) 05/02/20 14:53 Eos # (Auto) 0.0 K/mm3 (0.0-0.4) 05/02/20 14:53 Baso # (Auto) 0.0 K/mm3 (0.0-0.1) 05/02/20 14:53 Seg Neutrophils % 75.3 % (40.0-70.0) H 05/02/20 14:53 Seg Neutrophils # 5.5 K/mm3 (1.8-7.7) 05/02/20 14:53 PT 15.2 Sec. (12.2-14.9) H 05/02/20 14:53 INR 1.17 (0.87-1.13) H 05/02/20 14:53 APTT 31.5 Sec. (24.2-36.6) 05/02/20 14:53 Sodium 139 mmol/L (137-145) 05/03/20 04:45 Potassium 4.3 mmol/L (3.6-5.0) 05/03/20 04:45 Chloride 100.7 mmol/L (98-107) 05/03/20 04:45 Carbon Dioxide 23 mmol/L (22-30) 05/03/20 04:45 Anion Gap 20 mmol/L 05/03/20 04:45 BUN 23 mg/dL (7-17) H 05/03/20 04:45 Creatinine 1.5 mg/dL (0.6-1.2) H 05/03/20 04:45 Estimated GFR 41 ml/min 05/03/20 04:45 BUN/Creatinine Ratio 15 % 05/03/20 04:45 Glucose 106 mg/dL (65-100) H 05/03/20 04:45 Lactic Acid 1.70 mmol/L (0.7-2.0) 05/02/20 Unknown Calcium 9.7 mg/dL (8.4-10.2) 05/03/20 04:45 Total Bilirubin 0.50 mg/dL (0.1-1.2) 05/03/20 04:45 Direct Bilirubin < 0.2 mg/dL (0-0.2) 05/02/20 14:53 Indirect Bilirubin 0.5 mg/dL 05/02/20 14:53 AST 24 units/L (5-40) 05/03/20 04:45 ALT 11 units/L (7-56) 05/03/20 04:45 Alkaline Phosphatase 114 units/L (35-129) 05/03/20 04:45 Ammonia 31.0 umol/L (25-60) 05/02/20 Unknown Total Creatine Kinase 81 units/L (30-135) 05/02/20 14:53 Troponin T < 0.010 ng/mL (0.00-0.029) 05/02/20 14:53 Total Protein 7.5 g/dL (6.3-8.2) 05/03/20 04:45 Albumin 3.8 g/dL (3.9-5) L 05/03/20 04:45 Albumin/Globulin Ratio 1.0 % 05/03/20 04:45 TSH 25.790 mlU/mL (0.270-4.200) H 05/02/20 14:53 Free T4 2.17 ng/dL (0.76-1.46) H 05/03/20 11:09 Urine Color Red (Yellow) 05/02/20 15:53 Urine Turbidity Cloudy (Clear) 05/02/20 15:53 Urine pH 5.0 (5.0-7.0) 05/02/20 15:53 Ur Specific [place] 1.016 (1.003-1.030) 05/02/20 15:53 Urine Protein >500 mg/dL (Negative) 05/02/20 15:53 Urine Glucose (UA) Neg mg/dL (Negative) 05/02/20 15:53 Urine Ketones Neg mg/dL (Negative) 05/02/20 15:53 Urine Blood Lg (Negative) 05/02/20 15:53 Urine Nitrite Neg (Negative) 05/02/20 15:53 Urine Bilirubin Neg (Negative) 05/02/20 15:53 Urine Urobilinogen 2.0 mg/dL (<2.0) 05/02/20 15:53 Ur Leukocyte Esterase Lg (Negative) 05/02/20 15:53 Urine WBC (Auto) > 182.0 /HPF (0.0-6.0) H 05/02/20 15:53 Urine RBC (Auto) 90.0 /HPF (0.0-6.0) 05/02/20 15:53 U Epithel Cells (Auto) 1.0 /HPF (0-13.0) 05/02/20 15:53 Urine Bacteria (Auto) 1+ /HPF (Negative) 05/02/20 15:53 Urine WBC Clumps 1+ /HPF 05/02/20 15:53 Hyaline Casts 27 /LPF 05/02/20 15:53 Urine Mucus 3+ /HPF 05/02/20 15:53 Urine Creatinine 63.6 mg/dL (0.1-20.0) H 05/04/20 Unknown Urine Sodium 109 mmol/L 05/04/20 Unknown Urine Total Protein 100 mg/dL (5-11.8) H 05/04/20 Unknown Urine Opiates Screen Negative 05/02/20 15:53 Urine Methadone Screen Negative 05/02/20 15:53 Ur Barbiturates Screen Negative 05/02/20 15:53 Ur Phencyclidine Scrn Negative 05/02/20 15:53 Ur Amphetamines Screen Negative 05/02/20 15:53 U Benzodiazepines Scrn Negative 05/02/20 15:53 Urine Cocaine Screen Negative 05/02/20 15:53 U Marijuana (THC) Screen Negative 05/02/20 15:53 Drugs of Abuse Note Disclamer 05/02/20 15:53 Plasma/Serum Alcohol < 0.01 % (0-0.07) 05/02/20 14:53 Microbiology: Microbiology 05/02/20 16:00 Peripheral/Venous Blood Culture - Preliminary NO GROWTH AFTER 24 HOURS 05/02/20 16:00 Peripheral/Venous Blood Culture - Preliminary NO GROWTH AFTER 24 HOURS 05/02/20 15:53 Urine,Catheterized - Straight Catheter Urine Culture - Preliminary Gram Negative Dalton Newman/IV: Voiding Method External Female Catheter IV Catheter Type [Left INT / Saline Lock Antecubital] Active Medications - Current Medications Current Medications: Generic Name Dose Route Start Last Admin Trade Name Freq PRN Reason Stop Dose Admin Bisacodyl 10 mg 05/04/20 10:00 Dulcolax PO DAILY PITA Donepezil HCl 20 mg 05/03/20 12:00 05/03/20 14:47 Aricept PO Not Given DAILY PITA Heparin Sodium (Porcine) 5,000 unit 05/02/20 22:00 05/03/20 22:05 Heparin SUB-Q 5,000 unit Q12HR PITA Administration Hydralazine HCl 25 mg 05/03/20 22:00 05/03/20 22:10 Apresoline PO Not Given BID PITA Hydralazine HCl 10 mg 05/04/20 02:13 05/04/20 03:00 Apresoline IV 10 mg Q6H PRN Administration Hypertension Sodium Chloride 1,000 mls @ 100 mls/hr 05/02/20 19:30 05/04/20 01:58 EST Nacl 0.9% 1000 Ml IV 100 mls/hr DIRECT PITA Administration Cefepime HCl 1 gm in 100 mls @ 200 mls/hr 05/03/20 10:00 05/03/20 11:08 Cefepime/Ns 1 Gm/100 Ml IV 200 mls/hr Q24HR PITA Administration Protocol Pneumococcal Polyvalent Vaccine 0.5 ml 05/04/20 12:00 Pneumovax 23 IM 05/04/20 12:01 .ONCE ONE Sodium Chloride 10 ml 05/02/20 22:00 05/03/20 22:09 Sodium Chloride Flush Syringe 10 Ml IV 10 ml BID PITA Administration Sodium Chloride 10 ml 05/02/20 19:19 Sodium Chloride Flush Syringe 10 Ml IV PRN PRN LINE FLUSH
[2020-05-04] MEDS ORDERED: DEXTROSE 50% IN WATER (25GM) 50 ML SYRINGE IV ONE (08:16)
[2020-05-04] MEDS: DONEPEZIL 10 MG TAB PO SCH (09:36)
[2020-05-04] MEDS: hydrALAZINE 25 MG TAB PO SCH ×2 (09:36→22:26)
[2020-05-04] MEDS: LEVOTHYROXINE 100 MCG INJ IV SCH (09:37)
[2020-05-04] MEDS: HEPARIN 5,000 UNIT/1 ML VIAL SUB-Q SCH ×2 (09:42→22:28)
[2020-05-04] MEDS: CEFEPIME/NS 1 GM/100 ML 1 GM/100 ML BAG IV SCH (09:42)
[2020-05-04] MEDS ORDERED: DONEPEZIL HCL 23 MG PO SCH (10:00)
--- NOTE | 2020-05-04 10:31 | Progress Note ---
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 pt received 2L IV NS bolus, recommend to hold maintenance IVF given elevated BP. UA showed > 500+ protein, large blood, check urine lytes, urine P/C ratio. Obtain vasculitis/acute GN panel incl. MAJOR, ANCA, Anti GBM, c3/4, hepatitis panel. avoid further nephrotoxins, NSAIDs IV contrast. (2) Acute metabolic encephalopathy Current Visit: Yes Status: Acute Plan to address problem: possibly 2/2 myxedema coma (3) Urinary tract infection Current Visit: Yes Status: Acute Qualifiers: Encounter type: initial encounter Plan to address problem: f/u UCx, cont IV ABX with cefepime (4) HTN (hypertension) Current Visit: No Status: Acute Qualifiers: Hypertension type: essential hypertension Qualified Code(s): I10 - Essential (primary) hypertension Plan to address problem: BP improved s/p cardene gtt, monitor on current po BP regimen Subjective Date of service: 05/04/20 Principal diagnosis: PARIS Interval history: pt remains nonverbal, lethargic Objective - Vital Signs Vital signs: Vital Signs - 12hr 05/03/20 05/03/20 05/03/20 23:31 23:41 23:51 Temperature Pulse Rate 74 73 71 Respiratory 15 14 14 Rate Blood Pressure 129/60 129/60 162/83 O2 Sat by Pulse 100 100 100 Oximetry 05/04/20 05/04/20 05/04/20 00:00 00:11 00:21 Temperature 97.3 F L Pulse Rate 71 70 66 Respiratory 15 18 11 L Rate Blood Pressure 168/74 168/74 168/74 O2 Sat by Pulse 100 100 100 Oximetry 05/04/20 05/04/20 05/04/20 00:31 00:41 00:51 Temperature Pulse Rate 63 62 62 Respiratory 11 L 26 H 12 Rate Blood Pressure 168/74 168/74 168/74 O2 Sat by Pulse 100 100 100 Oximetry 05/04/20 05/04/20 05/04/20 01:00 EST 01:11 EST 01:21 EST Temperature Pulse Rate 61 68 74 Respiratory 12 16 17 Rate Blood Pressure 156/72 119/60 156/72 O2 Sat by Pulse 100 100 100 Oximetry 05/04/20 05/04/20 05/04/20 01:31 EST 01:41 EST 01:51 EST Temperature Pulse Rate 59 L 58 L 59 L Respiratory 12 10 L 11 L Rate Blood Pressure 156/72 156/72 156/72 O2 Sat by Pulse 100 100 100 Oximetry 05/04/20 05/04/20 05/04/20 02:01 02:11 02:21 Temperature Pulse Rate 56 L 59 L 57 L Respiratory 17 19 13 Rate Blood Pressure 184/77 188/103 188/103 O2 Sat by Pulse 100 100 100 Oximetry 05/04/20 05/04/20 05/04/20 02:31 02:41 02:51 Temperature Pulse Rate 57 L 58 L 58 L Respiratory 14 13 13 Rate Blood Pressure 188/103 188/103 188/103 O2 Sat by Pulse 100 100 100 Oximetry 05/04/20 05/04/20 05/04/20 03:00 03:01 03:11 Temperature Pulse Rate 57 L 64 60 Respiratory 15 12 Rate Blood Pressure 188/103 188/103 180/77 O2 Sat by Pulse 100 100 Oximetry 05/04/20 05/04/20 05/04/20 03:21 03:31 03:41 Temperature Pulse Rate 59 L 59 L 58 L Respiratory 10 L 12 14 Rate Blood Pressure 180/77 180/77 180/77 O2 Sat by Pulse 100 100 100 Oximetry 05/04/20 05/04/20 05/04/20 03:51 04:00 04:01 Temperature 97.0 F L Pulse Rate 56 L 57 L 57 L Respiratory 18 19 Rate Blood Pressure 180/77 72/35 O2 Sat by Pulse 100 100 Oximetry 05/04/20 05/04/20 05/04/20 04:11 04:21 08:00 Temperature 97.9 F Pulse Rate 60 59 L Respiratory 14 11 L Rate Blood Pressure 139/59 139/59 O2 Sat by Pulse 100 100 Oximetry 05/04/20 09:36 Temperature Pulse Rate 51 L Respiratory Rate Blood Pressure O2 Sat by Pulse Oximetry - General Appearance General appearance: well-developed, appears stated age, chronically ill EENT: ATNC, PERRL, mucous membranes moist Neck: no JVD Respiratory: Present: Decreased Breath Sounds Cardiology: regular, S1S2 Gastrointestinal: normoactive bowel sounds Integumentary: no rash Neurologic: confused, disoriented - Lab 05/02/20 14:53 05/03/20 04:45 Most recent lab results Calcium 9.7 mg/dL (8.4-10.2) 05/03/20 04:45 Urine Creatinine 63.6 mg/dL (0.1-20.0) H 05/04/20 Unknown Urine Sodium 109 mmol/L 05/04/20 Unknown Urine Total Protein 100 mg/dL (5-11.8) H 05/04/20 Unknown Medications & Allergies - Medications Allergies/Adverse Reactions: Allergies valsartan Allergy (Verified 04/19/18 14:23) Angioedema Home Medications: Home Medications Medication Instructions Recorded Confirmed Last Taken Type Donepezil HCl 23 mg PO DAILY 04/19/18 05/02/20 Unknown History bisacodyL [Dulcolax tab] 10 mg PO DAILY 04/19/18 05/02/20 Unknown History hydrALAZINE [Apresoline TAB] 25 mg PO BID 04/19/18 05/02/20 Unknown History Levothyroxine [Synthroid] 88 mcg PO QAM 05/02/20 05/02/20 Unknown History Active Medications: Generic Name Dose Route Start Last Admin Trade Name Freq PRN Reason Stop Dose Admin Bisacodyl 10 mg 05/04/20 10:00 05/04/20 09:36 Dulcolax PO Not Given DAILY PITA Dextrose 50 ml 05/04/20 08:23 D50w (25gm) Syringe IV Q30MIN PRN Hypoglycemia Protocol Donepezil HCl 20 mg 05/03/20 12:00 05/04/20 09:36 Aricept PO Not Given DAILY PITA Heparin Sodium (Porcine) 5,000 unit 05/02/20 22:00 05/04/20 09:42 Heparin SUB-Q 5,000 unit Q12HR PITA Administration Hydralazine HCl 25 mg 05/03/20 22:00 05/04/20 09:36 Apresoline PO Not Given BID PITA Hydralazine HCl 10 mg 05/04/20 02:13 05/04/20 03:00 Apresoline IV 10 mg Q6H PRN Administration Hypertension Sodium Chloride 1,000 mls @ 100 mls/hr 05/02/20 19:30 05/04/20 01:58 EST Nacl 0.9% 1000 Ml IV 100 mls/hr DIRECT PITA Administration Cefepime HCl 1 gm in 100 mls @ 200 mls/hr 05/03/20 10:00 05/04/20 09:42 Cefepime/Ns 1 Gm/100 Ml IV 200 mls/hr Q24HR PITA Administration Protocol Pneumococcal Polyvalent Vaccine 0.5 ml 05/04/20 12:00 Pneumovax 23 IM 05/04/20 12:01 .ONCE ONE Sodium Chloride 10 ml 05/02/20 22:00 05/04/20 09:43 Sodium Chloride Flush Syringe 10 Ml IV 10 ml BID PITA Administration Sodium Chloride 10 ml 05/02/20 19:19 Sodium Chloride Flush Syringe 10 Ml IV PRN PRN LINE FLUSH
[2020-05-04] MEDS ORDERED: PNEUMOCOCCAL 23 Valent 0.5 ML VIAL IM ONE (12:00)
[2020-05-04] MEDS: DEXTROSE 50% IN WATER (25GM) 50 ML SYRINGE IV PRN (22:36)
[2020-05-05 00:24] LABS: Calcium 8.9 mg/dL (8.4-10.2)
[2020-05-05] MEDS: DEXTROSE 50% IN WATER (25GM) 50 ML SYRINGE IV PRN (00:26)
[2020-05-05] MEDS ORDERED: DEXTROSE 10% IN WATER 250 ML IV SCH (01:00)
[2020-05-05] MEDS: hydrALAZINE 20 MG/1 ML INJ IV PRN ×3 (01:00→20:01)
--- NOTE | 2020-05-05 07:52 | Progress Note ---
Assessment and Plan Assessment and plan: 79 YO Female Personal Fdc Resident with HTN, Dementia, Hypothyroidism, Encephalopathy, Anxiety presents to ED for evaluation. Pt is confused and unable to provide history. Pt history taken from her caregiver. As per caregiver, the patient. EMS was notified, and upon arrival the patient was found to be hypotensive and bradycardic an hypthermic. EMS was notivied and upon arrival the patient was found to be in distress. The patient was transported to [facility] for further care and evaluation. Pt seen and evaluated in ED. All lab and imaging studies reviewed. The patient was found to have symptoms consistent with Myxedema Coma, PARIS with ATN, Metabolic Encephalopathy, as well as UTI. The patient is confused and lethargic but has a positive gag reflex and is able to protect her airway. Pt admitted to [facility] and treated with IV Synthroid therapy. No reports of fever, chills, productive cough, skin rash, recent ill contacts, or known exposure to COVID-19. Prior admission on 04/24/2018 reviewed. All medication listed at time of admission has been reconciled. Advanced care planning conducted in the emergency department. 05/04: Discussed with Niece, states at baseline, she is confused, but can talk some, also walks but very slow. she needs assistance with feeding and all other activities of daily living. The patients Niece, is also the Guardian according to her. [facility] is Leah [facility] [phone] Primary care group- [phone] Pharmacy [phone] Discussed extensively with the nurse will monitor patient's blood pressure which is labile at this time. Await repeat studies as noted below 05/05: Repeat TSH and free T4 more indicative of Hypothyrdoisim. Will resume home dose of Synthroid. Will continue to monitor mentals status to see if patient improves to baseline. Per the nursing staff, family did not want MRI, states patient has had multiple. Considering improved TSH and Free T4, no further concern for pituitary adenoma at this time. Anticipate discharge in am Transfer to [facility]. Nurse to hand off, close monitoring and assistance with feeding and fall precautions Acute metabolic encephlaopathy Doubt Myxedema coma possible TSH Producing Tumor TIA with possible underlying CVA Presumed sepsis secondary to Cystitis Hypertensive urgency PARIS on ckd Secondary to vasomotor nephropathy Acute Cystitis Vascular Dementia Plan-UPDATED Stop cardene drip- wean off Monitor BP Nephrology input noted, hold fluids, vasculitis work up ongoing MRI in[place] for Pituitary ademona VS CVA Await complete work up of Thyroid organs Continue to monitor Mental status changes Obtain home medications Patient known to have hypothrodisim, Hold off IV synthroid, repeat TSH and free T4 Monitor for symptomatic Bradyacardia Continue Abx for possible Sepsis DVT/GI prophy History Interval history: Patient seen and examined, improving But still lethargic Hospitalist Physical - Physical exam Narrative exam: General appearance: Present: Resting comfortably. - EENT Eyes: Present: PERRL ENT: hearing decreased - Neck Neck: Present: supple - Respiratory Respiratory: bilateral: CTA - Cardiovascular Rhythm: other Heart Sounds: Present: S1 & S2. Absent: rub, click - Extremities Extremities: pulses symmetrical, No edema - Abdominal General gastrointestinal: Present: soft, non-tender, non-distended - Integumentary Integumentary: Present: clear, dry - Musculoskeletal Musculoskeletal: generalized weakness - Psychiatric Psychiatric: no appropriate mood/affect, no intact judgment & insight, no memory intact - Neurologic Neurologic: CNII-XII intact, no focal deficits, moves all extremities, no gait normal - Constitutional Vitals: Temp Pulse Resp BP Pulse Ox 97.3 F L 73 19 125/69 100 05/05/20 04:00 05/05/20 06:30 05/05/20 06:30 05/05/20 06:30 05/05/20 06:30 General appearance: Present: mild distress HEART Score - HEART Score Troponin: Troponin T < 0.010 ng/mL (0.00-0.029) 05/02/20 14:53 Results - Labs CBC & Chem 7: 05/02/20 14:53 05/04/20 23:50 Labs: Laboratory Last Values WBC 7.4 K/mm3 (4.5-11.0) 05/02/20 14:53 RBC 3.79 M/mm3 (3.65-5.03) 05/02/20 14:53 Hgb 13.0 gm/dl (10.1-14.3) 05/02/20 14:53 Hct 38.0 % (30.3-42.9) 05/02/20 14:53 MCV 100 fl (79-97) H 05/02/20 14:53 MCH 34 pg (28-32) H 05/02/20 14:53 MCHC 34 % (30-34) 05/02/20 14:53 RDW 13.4 % (13.2-15.2) 05/02/20 14:53 Plt Count 209 K/mm3 (140-440) 05/02/20 14:53 Lymph % (Auto) 16.6 % (13.4-35.0) 05/02/20 14:53 [place] % (Auto) 7.0 % (0.0-7.3) 05/02/20 14:53 Eos % (Auto) 0.5 % (0.0-4.3) 05/02/20 14:53 Baso % (Auto) 0.6 % (0.0-1.8) 05/02/20 14:53 Lymph # (Auto) 1.2 K/mm3 (1.2-5.4) 05/02/20 14:53 [place] # (Auto) 0.5 K/mm3 (0.0-0.8) 05/02/20 14:53 Eos # (Auto) 0.0 K/mm3 (0.0-0.4) 05/02/20 14:53 Baso # (Auto) 0.0 K/mm3 (0.0-0.1) 05/02/20 14:53 Seg Neutrophils % 75.3 % (40.0-70.0) H 05/02/20 14:53 Seg Neutrophils # 5.5 K/mm3 (1.8-7.7) 05/02/20 14:53 PT 15.2 Sec. (12.2-14.9) H 05/02/20 14:53 INR 1.17 (0.87-1.13) H 05/02/20 14:53 APTT 31.5 Sec. (24.2-36.6) 05/02/20 14:53 Sodium 144 mmol/L (137-145) 05/04/20 23:50 Potassium 4.0 mmol/L (3.6-5.0) 05/04/20 23:50 Chloride 108.0 mmol/L (98-107) H 05/04/20 23:50 Carbon Dioxide 25 mmol/L (22-30) 05/04/20 23:50 Anion Gap 15 mmol/L 05/04/20 23:50 BUN 23 mg/dL (7-17) H 05/04/20 23:50 Creatinine 1.1 mg/dL (0.6-1.2) 05/04/20 23:50 Estimated GFR 58 ml/min 05/04/20 23:50 BUN/Creatinine Ratio 21 % 05/04/20 23:50 Glucose 63 mg/dL (65-100) L 05/04/20 23:50 POC Glucose 112 mg/dL (70-105) H 05/05/20 05:44 Lactic Acid 1.70 mmol/L (0.7-2.0) 05/02/20 Unknown Calcium 8.9 mg/dL (8.4-10.2) 05/04/20 23:50 Total Bilirubin 0.50 mg/dL (0.1-1.2) 05/03/20 04:45 Direct Bilirubin < 0.2 mg/dL (0-0.2) 05/02/20 14:53 Indirect Bilirubin 0.5 mg/dL 05/02/20 14:53 AST 24 units/L (5-40) 05/03/20 04:45 ALT 11 units/L (7-56) 05/03/20 04:45 Alkaline Phosphatase 114 units/L (35-129) 05/03/20 04:45 Ammonia 31.0 umol/L (25-60) 05/02/20 Unknown Total Creatine Kinase 81 units/L (30-135) 05/02/20 14:53 Troponin T < 0.010 ng/mL (0.00-0.029) 05/02/20 14:53 Total Protein 7.5 g/dL (6.3-8.2) 05/03/20 04:45 Albumin 3.8 g/dL (3.9-5) L 05/03/20 04:45 Albumin/Globulin Ratio 1.0 % 05/03/20 04:45 TSH 5.340 mlU/mL (0.270-4.200) H 05/04/20 23:50 Free T4 1.38 ng/dL (0.76-1.46) 05/04/20 23:50 Urine Color Red (Yellow) 05/02/20 15:53 Urine Turbidity Cloudy (Clear) 05/02/20 15:53 Urine pH 5.0 (5.0-7.0) 05/02/20 15:53 Ur Specific [place] 1.016 (1.003-1.030) 05/02/20 15:53 Urine Protein >500 mg/dL (Negative) 05/02/20 15:53 Urine Glucose (UA) Neg mg/dL (Negative) 05/02/20 15:53 Urine Ketones Neg mg/dL (Negative) 05/02/20 15:53 Urine Blood Lg (Negative) 05/02/20 15:53 Urine Nitrite Neg (Negative) 05/02/20 15:53 Urine Bilirubin Neg (Negative) 05/02/20 15:53 Urine Urobilinogen 2.0 mg/dL (<2.0) 05/02/20 15:53 Ur Leukocyte Esterase Lg (Negative) 05/02/20 15:53 Urine WBC (Auto) > 182.0 /HPF (0.0-6.0) H 05/02/20 15:53 Urine RBC (Auto) 90.0 /HPF (0.0-6.0) 05/02/20 15:53 U Epithel Cells (Auto) 1.0 /HPF (0-13.0) 05/02/20 15:53 Urine Bacteria (Auto) 1+ /HPF (Negative) 05/02/20 15:53 Urine WBC Clumps 1+ /HPF 05/02/20 15:53 Hyaline Casts 27 /LPF 05/02/20 15:53 Urine Mucus 3+ /HPF 05/02/20 15:53 Urine Creatinine 63.6 mg/dL (0.1-20.0) H 05/04/20 Unknown Urine Sodium 109 mmol/L 05/04/20 Unknown Urine Total Protein 100 mg/dL (5-11.8) H 05/04/20 Unknown Urine Opiates Screen Negative 05/02/20 15:53 Urine Methadone Screen Negative 05/02/20 15:53 Ur Barbiturates Screen Negative 05/02/20 15:53 Ur Phencyclidine Scrn Negative 05/02/20 15:53 Ur Amphetamines Screen Negative 05/02/20 15:53 U Benzodiazepines Scrn Negative 05/02/20 15:53 Urine Cocaine Screen Negative 05/02/20 15:53 U Marijuana (THC) Screen Negative 05/02/20 15:53 Drugs of Abuse Note Disclamer 05/02/20 15:53 Plasma/Serum Alcohol < 0.01 % (0-0.07) 05/02/20 14:53 Microbiology: Microbiology 05/02/20 16:00 Peripheral/Venous Blood Culture - Preliminary NO GROWTH AFTER 48 HOURS 05/02/20 16:00 Peripheral/Venous Blood Culture - Preliminary NO GROWTH AFTER 48 HOURS 05/02/20 15:53 Urine,Catheterized - Straight Catheter Urine Culture - Final Escherichia Coli Newman/IV: Voiding Method External Female Catheter IV Catheter Type [Left INT / Saline Lock Antecubital] Active Medications - Current Medications Current Medications: Generic Name Dose Route Start Last Admin Trade Name Freq PRN Reason Stop Dose Admin Bisacodyl 10 mg 05/04/20 10:00 05/04/20 09:36 Dulcolax PO Not Given DAILY PITA Dextrose 50 ml 05/04/20 08:23 05/05/20 00:26 D50w (25gm) Syringe IV 20 ml Q30MIN PRN Administration Hypoglycemia Protocol Donepezil HCl 20 mg 05/03/20 12:00 05/04/20 09:36 Aricept PO Not Given DAILY [facility] Heparin Sodium (Porcine) 5,000 unit 05/02/20 22:00 05/04/20 22:28 Heparin SUB-Q 5,000 unit Q12HR PITA Administration Hydralazine HCl 25 mg 05/03/20 22:00 05/04/20 22:26 Apresoline PO Not Given BID PITA Hydralazine HCl 10 mg 05/04/20 02:13 05/05/20 01:00 Apresoline IV 10 mg Q6H PRN Administration Hypertension Sodium Chloride 1,000 mls @ 100 mls/hr 05/02/20 19:30 05/04/20 01:58 EST Nacl 0.9% 1000 Ml IV 100 mls/hr DIRECT PITA Administration Cefepime HCl 1 gm in 100 mls @ 200 mls/hr 05/05/20 10:00 Cefepime/Ns 1 Gm/100 Ml IV 05/09/20 23:59 Q12HR PITA Protocol Sodium Chloride 10 ml 05/02/20 22:00 05/04/20 22:28 Sodium Chloride Flush Syringe 10 Ml IV 10 ml BID PITA Administration Sodium Chloride 10 ml 05/02/20 19:19 Sodium Chloride Flush Syringe 10 Ml IV PRN PRN LINE FLUSH Nutrition/Malnutrition Assess - Dietary Evaluation Nutrition/Malnutrition Findings: Nutrition Notes Start: 05/04/20 09:38 Freq: Status: Active Protocol: Document 05/04/20 09:38 LM (Rec: 05/04/20 09:57 LM [id number]) Nutrition Notes 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 Lorenzo score is 10. Pt has hyperpigmented skin on buttocks. Pt is nonverbal. Burn Absent Trauma Absent Current % PO Negligible Minimum of two criteria No Fluid Accumulation Mild (non-severe) #1 Nutrition Diagnosis Inadequate oral intake Etiology Myxedema coma As Evidenced by Signs and Symptoms Pt NPO Is patient on ventilator? No Is Patient Ambulatory and/or Out of Bed No REE-([place]-confined to bed) 1313.184 Kcal/Kg value to use for calculation 29 Approximate Energy Requirements Using 1702 kcal/Kg Calculation Used for Recommendations Kcal/kg Additional Notes Protein: 47-70g (0.8-1.2g/kg) Fluid: 1ml/kcal Nutrition Intervention Change Diet Order: Enteral nutrition when medically feasible Nutrition Support: Osmolite 1.5 at 45ml/hr Flush 130ml q4h Kcal 1,620 Protein (gm) 68 Fluid (mL) 823 Goal #1 Start enteral nutrition Anticipated Discharge Needs: unable to determine at this time Follow-Up By: 05/06/20 Additional Comments F/U for POC
[2020-05-05] MEDS: HEPARIN 5,000 UNIT/1 ML VIAL SUB-Q SCH ×2 (09:17→21:37)
[2020-05-05] MEDS: DONEPEZIL 10 MG TAB PO SCH (09:19)
[2020-05-05] MEDS: CEFEPIME/NS 1 GM/100 ML 1 GM/100 ML BAG IV SCH ×2 (09:20→21:37)
[2020-05-05] MEDS: hydrALAZINE 25 MG TAB PO SCH ×2 (09:20→21:38)
[2020-05-05] MEDS: SODIUM CHLORIDE 0.9% 1000 ML 1,000 ML IV SCH ×2 (09:31→20:05)
--- NOTE | 2020-05-05 11:05 | Progress Note ---
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 renal function stabilized s/p IVF and IV synthroid treatment. UA showed > 500+ protein, large blood. pending MAJOR, ANCA, Anti GBM, c3/4, hepatitis panel. avoid further nephrotoxins, NSAIDs IV contrast. (2) Acute metabolic encephalopathy Current Visit: Yes Status: Acute Plan to address problem: possibly 2/2 myxedema coma (3) Urinary tract infection Current Visit: Yes Status: Acute Qualifiers: Encounter type: initial encounter Plan to address problem: f/u UCx, cont IV ABX with cefepime (4) HTN (hypertension) Current Visit: No Status: Acute Qualifiers: Hypertension type: essential hypertension Qualified Code(s): I10 - Essential (primary) hypertension Plan to address problem: BP improved s/p cardene gtt, monitor on current po BP regimen Subjective Date of service: 05/05/20 Principal diagnosis: PARIS Interval history: pt remains nonverbal, lethargic Objective - Vital Signs Vital signs: Vital Signs - 12hr 05/04/20 05/05/20 05/05/20 23:30 00:00 00:01 Temperature 97.9 F Pulse Rate 65 64 71 Respiratory 12 14 Rate Blood Pressure 115/56 115/56 O2 Sat by Pulse 100 100 Oximetry 05/05/20 05/05/20 05/05/20 00:31 01:00 01:01 Temperature Pulse Rate 71 64 65 Respiratory 14 16 Rate Blood Pressure 163/73 177/84 165/76 O2 Sat by Pulse 100 100 Oximetry 05/05/20 05/05/20 05/05/20 01:31 02:00 02:30 Temperature Pulse Rate 73 80 73 Respiratory 15 12 14 Rate Blood Pressure 125/49 119/53 136/55 O2 Sat by Pulse 100 100 100 Oximetry 05/05/20 05/05/20 05/05/20 03:00 03:30 04:00 Temperature 97.3 F L Pulse Rate 82 68 71 Respiratory 14 10 L 14 Rate Blood Pressure 135/64 105/48 140/64 O2 Sat by Pulse 100 100 100 Oximetry 05/05/20 05/05/20 05/05/20 04:31 05:00 05:30 Temperature Pulse Rate 79 66 62 Respiratory 13 13 11 L Rate Blood Pressure 118/62 141/73 144/67 O2 Sat by Pulse 100 100 100 Oximetry 05/05/20 05/05/20 05/05/20 06:00 06:30 09:17 Temperature Pulse Rate 66 73 74 Respiratory 15 19 Rate Blood Pressure 138/63 125/69 177/75 O2 Sat by Pulse 100 100 Oximetry - General Appearance General appearance: well-developed, appears stated age, chronically ill EENT: ATNC, PERRL, mucous membranes moist Neck: no JVD Respiratory: Present: Clear to Ascultation Cardiology: regular, S1S2 Gastrointestinal: normoactive bowel sounds Integumentary: no rash Neurologic: confused, disoriented - Lab 05/02/20 14:53 05/04/20 23:50 Most recent lab results Calcium 8.9 mg/dL (8.4-10.2) 05/04/20 23:50 Urine Creatinine 63.6 mg/dL (0.1-20.0) H 05/04/20 Unknown Urine Sodium 109 mmol/L 05/04/20 Unknown Urine Total Protein 100 mg/dL (5-11.8) H 05/04/20 Unknown Medications & Allergies - Medications Allergies/Adverse Reactions: Allergies valsartan Allergy (Verified 04/19/18 14:23) Angioedema Home Medications: Home Medications Medication Instructions Recorded Confirmed Last Taken Type Donepezil HCl 23 mg PO DAILY 04/19/18 05/02/20 Unknown History bisacodyL [Dulcolax tab] 10 mg PO DAILY 04/19/18 05/02/20 Unknown History hydrALAZINE [Apresoline TAB] 25 mg PO BID 04/19/18 05/02/20 Unknown History Levothyroxine [Synthroid] 88 mcg PO QAM 05/02/20 05/02/20 Unknown History Active Medications: Generic Name Dose Route Start Last Admin Trade Name Freq PRN Reason Stop Dose Admin Bisacodyl 10 mg 05/04/20 10:00 05/05/20 09:19 Dulcolax PO 10 mg DAILY PITA Administration Dextrose 50 ml 05/04/20 08:23 05/05/20 00:26 D50w (25gm) Syringe IV 20 ml Q30MIN PRN Administration Hypoglycemia Protocol Donepezil HCl 20 mg 05/03/20 12:00 05/05/20 09:19 Aricept PO 20 mg DAILY PITA Administration Heparin Sodium (Porcine) 5,000 unit 05/02/20 22:00 05/05/20 09:17 Heparin SUB-Q 5,000 unit Q12HR PITA Administration Hydralazine HCl 25 mg 05/03/20 22:00 05/05/20 09:20 Apresoline PO Not Given BID PITA Hydralazine HCl 10 mg 05/04/20 02:13 05/05/20 09:17 Apresoline IV 10 mg Q6H PRN Administration Hypertension Sodium Chloride 1,000 mls @ 100 mls/hr 05/02/20 19:30 05/05/20 09:31 Nacl 0.9% 1000 Ml IV 100 mls/hr DIRECT PITA Administration Cefepime HCl 1 gm in 100 mls @ 200 mls/hr 05/05/20 10:00 05/05/20 09:20 Cefepime/Ns 1 Gm/100 Ml IV 05/09/20 23:59 200 mls/hr Q12HR PITA Administration Protocol Sodium Chloride 10 ml 05/02/20 22:00 05/05/20 09:21 Sodium Chloride Flush Syringe 10 Ml IV 10 ml BID PITA Administration Sodium Chloride 10 ml 05/02/20 19:19 Sodium Chloride Flush Syringe 10 Ml IV PRN PRN LINE FLUSH
[2020-05-06] MEDS: hydrALAZINE 20 MG/1 ML INJ IV PRN (05:44)
[2020-05-06] MEDS: CEFEPIME/NS 1 GM/100 ML 1 GM/100 ML BAG IV SCH (10:08)
[2020-05-06] MEDS: DONEPEZIL 10 MG TAB PO SCH (10:08)
[2020-05-06] MEDS: hydrALAZINE 25 MG TAB PO SCH (10:08)
[2020-05-06] MEDS: HEPARIN 5,000 UNIT/1 ML VIAL SUB-Q SCH (10:09)
--- NOTE | 2020-05-06 10:31 | Progress Note ---
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 renal function stabilized s/p IVF and IV synthroid treatment. UA showed > 500+ protein, large blood. pending MAJOR, ANCA, Anti GBM, c3/4, hepatitis panel. avoid further nephrotoxins, NSAIDs IV contrast. (2) Acute metabolic encephalopathy Current Visit: Yes Status: Acute Plan to address problem: possibly 2/2 myxedema coma (3) Urinary tract infection Current Visit: Yes Status: Acute Qualifiers: Encounter type: initial encounter Plan to address problem: f/u UCx, cont IV ABX with cefepime (4) HTN (hypertension) Current Visit: No Status: Acute Qualifiers: Hypertension type: essential hypertension Qualified Code(s): I10 - Essential (primary) hypertension Plan to address problem: BP improved s/p cardene gtt, monitor on current po BP regimen Subjective Date of service: 05/06/20 Principal diagnosis: PARIS Interval history: pt is somnolent, wakes up on tactile stimuli Objective - Vital Signs Vital signs: Vital Signs - 12hr 05/05/20 05/06/20 05/06/20 23:41 04:12 07:53 Temperature 98.5 F 98.3 F 98.0 F Pulse Rate 85 66 63 Respiratory 17 18 Rate Blood Pressure 144/98 185/74 167/62 O2 Sat by Pulse 100 100 100 Oximetry 05/06/20 08:02 Temperature Pulse Rate 67 Respiratory Rate Blood Pressure O2 Sat by Pulse Oximetry - General Appearance General appearance: well-developed, appears stated age EENT: ATNC, PERRL, mucous membranes moist Neck: no JVD Respiratory: Present: Clear to Ascultation Cardiology: regular, S1S2 Gastrointestinal: normoactive bowel sounds Integumentary: no rash Neurologic: confused, disoriented - Lab 05/02/20 14:53 05/04/20 23:50 Most recent lab results Calcium 8.9 mg/dL (8.4-10.2) 05/04/20 23:50 Urine Creatinine 63.6 mg/dL (0.1-20.0) H 05/04/20 Unknown Urine Sodium 109 mmol/L 05/04/20 Unknown Urine Total Protein 100 mg/dL (5-11.8) H 05/04/20 Unknown Medications & Allergies - Medications Allergies/Adverse Reactions: Allergies valsartan Allergy (Verified 04/19/18 14:23) Angioedema Home Medications: Home Medications Medication Instructions Recorded Confirmed Last Taken Type Donepezil HCl 23 mg PO DAILY 04/19/18 05/02/20 Unknown History bisacodyL [Dulcolax tab] 10 mg PO DAILY 04/19/18 05/02/20 Unknown History hydrALAZINE [Apresoline TAB] 25 mg PO BID 04/19/18 05/02/20 Unknown History Levothyroxine [Synthroid] 88 mcg PO QAM 05/02/20 05/02/20 Unknown History Active Medications: Generic Name Dose Route Start Last Admin Trade Name Freq PRN Reason Stop Dose Admin Bisacodyl 10 mg 05/04/20 10:00 05/06/20 10:08 Dulcolax PO 10 mg DAILY PITA Administration Dextrose 50 ml 05/04/20 08:23 05/05/20 00:26 D50w (25gm) Syringe IV 20 ml Q30MIN PRN Administration Hypoglycemia Protocol Donepezil HCl 20 mg 05/03/20 12:00 05/06/20 10:08 Aricept PO 20 mg DAILY PITA Administration Heparin Sodium (Porcine) 5,000 unit 05/02/20 22:00 05/06/20 10:09 Heparin SUB-Q 5,000 unit Q12HR PITA Administration Hydralazine HCl 25 mg 05/03/20 22:00 05/06/20 10:08 Apresoline PO 25 mg BID PITA Administration Hydralazine HCl 10 mg 05/04/20 02:13 05/06/20 05:44 Apresoline IV 10 mg Q6H PRN Administration Hypertension Sodium Chloride 1,000 mls @ 100 mls/hr 05/02/20 19:30 05/05/20 20:05 Nacl 0.9% 1000 Ml IV 100 mls/hr DIRECT PITA Administration Cefepime HCl 1 gm in 100 mls @ 200 mls/hr 05/05/20 10:00 05/06/20 10:08 Cefepime/Ns 1 Gm/100 Ml IV 05/09/20 23:59 200 mls/hr Q12HR PITA Administration Protocol Sodium Chloride 10 ml 05/02/20 22:00 05/06/20 10:09 Sodium Chloride Flush Syringe 10 Ml IV 10 ml BID PITA Administration Sodium Chloride 10 ml 05/02/20 19:19 Sodium Chloride Flush Syringe 10 Ml IV PRN PRN LINE FLUSH
[2020-05-06] MEDS ORDERED: amLODIPine 10 MG TAB PO SCH (16:00)
--- NOTE | 2020-05-06 16:02 | Discharge Summary ---
Providers - Providers Date of Admission: 05/02/20 19:19 Date of discharge: 05/06/20 Attending physician: MAYNOR NI 05/03/20 10:41 Consult to Physician [CONS] Routine Comment: Consulting Provider: MARIA FERNANDA MAN Physician Instructions: Reason For Exam: paris 05/04/20 08:24 Occupational Therapy Evaluate and Treat [CONS] Routine Comment: Reason For Exam: debility Physical Therapy Evaluation and Treat [CONS] Routine Comment: Reason For Exam: debility Hospitalization Condition: Stable Hospital course: 79 YO Female Personal Assisted Resident with HTN, Dementia, Hypothyroidism, Encephalopathy, Anxiety presents to ED for evaluation. Pt is confused and unable to provide history. Pt history taken from her caregiver. As per caregiver, the patient. EMS was notified, and upon arrival the patient was found to be hypotensive and bradycardic an hypthermic. EMS was notivied and upon arrival the patient was found to be in distress. The patient was transported to [facility] for further care and evaluation. Pt seen and evaluated in ED. All lab and imaging studies reviewed. The patient was found to have symptoms consistent with Myxedema Coma, PARIS with ATN, Metabolic Encephalopathy, as well as UTI. The patient is confused and lethargic but has a positive gag reflex and is able to protect her airway. Pt admitted to IMCU and treated with IV Synthroid therapy. No reports of fever, chills, productive cough, skin rash, recent ill contacts, or known exposure to COVID-19. Prior admission on 04/24/2018 reviewed. All medication listed at time of admission has been reconciled. Advanced care planning conducted in the emergency department. 05/04: Discussed with Niece, states at baseline, she is confused, but can talk some, also walks but very slow. she needs assistance with feeding and all other activities of daily living. The patients Niece, is also the Guardian according to her. [facility] is Leah [facility] [phone] Primary care group- [phone] Pharmacy [phone] Discussed extensively with the nurse will monitor patient's blood pressure which is labile at this time. Await repeat studies as noted below 05/05: Repeat TSH and free T4 more indicative of Hypothyrdoisim. Will resume home dose of Synthroid. Will continue to monitor mentals status to see if patient improves to baseline. Per the nursing staff, family did not want MRI, states patient has had multiple. Considering improved TSH and Free T4, no further concern for pituitary adenoma at this time. Anticipate discharge in am Transfer to Tele. Nurse to hand off, close monitoring and assistance with feeding and fall precautions. 05/06. Her BP has been reviewed. Added amlodipine for better control. She was seen by PT who recommended SNF but patients daughter does not want her to go to SNF. As per daughter, her dementia has been gradually getting worse in maria luz past few months. Patient is medically stable for discharge today. She will need to have follow up with PCP and an head golf coach. She will complete antibiotics for her UTI Disposition: [id number] HOME UNDER HOME HLTH - Discharge Diagnoses (1) PARIS (acute kidney injury) Status: Acute (2) Acute metabolic encephalopathy Status: Acute (3) Hypothyroid Status: Acute Qualifiers: Hypothyroidism type: unspecified Qualified Code(s): E03.9 - Hypothyroidism, unspecified (4) Metabolic encephalopathy Status: Acute (5) Vascular dementia Status: Acute Qualifiers: Dementia behavioral disturbance: without behavioral disturbance Qualified Code(s): F01.50 - Vascular dementia without behavioral disturbance (6) Dementia Status: Acute Qualifiers: Alzheimer's disease onset: other onset Dementia behavioral disturbance: with behavioral disturbance (7) HTN (hypertension) Status: Acute Qualifiers: Hypertension type: essential hypertension Qualified Code(s): I10 - Essential (primary) hypertension (8) Sepsis Status: Acute Core Measure Documentation - Palliative Care Palliative Care/ Comfort Measures: Not Applicable - Core Measures Any of the following diagnoses?: none Exam - Constitutional Vitals: Temp Pulse Resp BP Pulse Ox 97.2 F L 60 20 183/65 99 05/06/20 11:37 05/06/20 11:37 05/06/20 11:37 05/06/20 11:37 05/06/20 11:37 General appearance: Present: no acute distress, well-nourished - EENT Eyes: Present: PERRL - Neck Neck: Present: supple - Respiratory Respiratory effort: normal Respiratory: bilateral: CTA - Cardiovascular Heart Sounds: Present: S1 & S2. Absent: rub, click - Extremities Extremities: pulses symmetrical, No edema Peripheral Pulses: within normal limits - Abdominal General gastrointestinal: Present: soft, non-tender, non-distended, normal bowel sounds Female genitourinary: Present: normal - Integumentary Integumentary: Present: clear, warm, dry - Musculoskeletal Musculoskeletal: gait normal, strength equal bilaterally - Psychiatric Psychiatric: other (Limited due to dementia) - Neurologic Neurologic: CNII-XII intact, moves all extremities Plan Additional Instructions: Complete antibiotics. Continue levothyroxine and have a repeat thyroid function test in 4-8 weeks. Follow up with head golf coach in the office. Needs to have MRI cervical to evaluate for any cervical disease. This can be arrangfed by PCP Follow up with: GUILLERMINA TRIPATHI [Other] - 3-5 Days Konstantin GLASS MD [Referring] - 7 Days Prescriptions: amLODIPine 10 mg PO QDAY #30 tablet donepeziL [Aricept] 10 mg PO DAILY #30 tablet Levothyroxine [Synthroid] 110 mcg PO QAM #30
[2020-05-06 17:46] VITALS: BP 220/95
[2020-05-08 22:51] LABS: ANA Screen, IFA Negative (Negative)
== END 2020-05-06 18:34 | disposition home health service (06) | DRG 871 ==
LOC: ED 14:48 → IMCU 19:19 → 4A 05-05 13:32
PROVIDERS: ADMIT Internal Medicine; ATTEND Internal Medicine
DX: A41.9 Sepsis, unspecified organism (principal); E03.5 Myxedema coma; G93.41 Metabolic encephalopathy; N17.0 Acute kidney failure with tubular necrosis; G45.9 Transient cerebral ischemic attack, unspecified; F01.51 Vascular dementia, unspecified severity, with behavioral disturbance; N30.00 Acute cystitis without hematuria; I16.0 Hypertensive urgency; I12.9 Hypertensive chronic kidney disease with stage 1 through stage 4 chronic kidney disease, or unspecified chronic kidney disease; N18.9 Chronic kidney disease, unspecified; E03.9 Hypothyroidism, unspecified; F41.9 Anxiety disorder, unspecified; B96.20 Unspecified Escherichia coli [E. coli] as the cause of diseases classified elsewhere; Z82.49 Family history of ischemic heart disease and other diseases of the circulatory system; Z90.49 Acquired absence of other specified parts of digestive tract; Z90.710 Acquired absence of both cervix and uterus; Z88.8 Allergy status to other drugs, medicaments and biological substances
CPT/HCPCS: 36415; 70450; 71045; 80048; 80053; 80076; 80307; 80320; 81001; 82140; 82550; 82570; 82962; 83520; 84156; 84300; 84439; 84443; 84484; 85025; 85610; 85730; 86021; 86038; 86160; 87040; 87076; 87086; 87186; 90471; 93005; G0378; G0480; J0360; J0692; J1644; J7030